=== PATIENT | female | born 1955 | race Caucasian/White ===

== ENCOUNTER 2020-06-07 11:05 | Outpatient (REF) | payer OTHER, SELFPAY ==
[2020-06-07 11:37] LABS: IDNOW Serial# 55D5AD1C
[2020-06-07 11:38] LABS: COVID-19 Test Negative (Negative)
== END 2020-06-07 11:06 | disposition home or self-care (01) ==
LOC: HO.EMPCOV 11:05
PROVIDERS: PCP Internal Medicine; Visit Provider Internal Medicine
DX: Z20.828 Contact with and (suspected) exposure to other viral communicable diseases (principal)
CPT/HCPCS: 87635; C9803

== ENCOUNTER 2020-06-11 13:50 | Outpatient (REF) | payer OTHER, SELFPAY ==
[2020-06-11 14:41] LABS: COVID-19 Test Negative (Negative); IDNOW Serial# 9DD0AD1C
== END 2020-06-11 13:51 | disposition home or self-care (01) ==
LOC: HO.LAB 13:50
PROVIDERS: Visit Provider Internal Medicine
DX: Z20.828 Contact with and (suspected) exposure to other viral communicable diseases (principal)
CPT/HCPCS: 87635; C9803

== ENCOUNTER 2021-09-10 07:52 | Outpatient (REF) | payer OTHER, SELFPAY ==
--- NOTE | ~2021-09-10 | MM_ITS ---
EXAMINATION: BONE DENSITOMETRY CLINICAL INDICATION: Other specified disorders of bone density and structure. COMPARISON: Baseline BD dated 07/19/2019. TECHNIQUE: Using a [employer] DXA System (software version: 13.1) manufactured by [employer], dual-energy x-ray absorptiometry was performed of the lumbar spine and left hip. The images are of good technical quality. Summary results are attached. FINDINGS: AP SPINE L1-L4: Current: BMD 1.024 g/cm2, Z-score 0.5, T-score -1.3, osteopenia, 1.2% decrease from baseline (<5% change is not significant). Baseline: BMD 1.036 g/cm2. LEFT FEMUR, NECK: Current: BMD 0.704 g/cm2, Z-score -0.7, T-score -2.4, osteopenia. Baseline: BMD 0.799 g/cm2. LEFT FEMUR, TOTAL: Current: BMD 0.748 g/cm2, Z-score -0.5, T-score -2.1, osteopenia, 11.9% decrease from baseline (<5% change is not significant). Baseline: BMD 0.849 g/cm2. IDENTIFIED RISK FACTORS: Menopause. HISTORY OF FRACTURE: None listed. MEDICATIONS: Calcium supplements or multivitamin, vitamin D. MM/XR DEXA axial skeleton IMPRESSION: 1. DIAGNOSIS: Osteopenia based on the lowest T-score value of -2.4 in the femoral neck applying World Health Organization criteria. 2. 10-YEAR FRACTURE RISK PREDICTION, FRAX: Major osteoporotic fracture (clinical spine, forearm, hip or shoulder) 13.7%. Hip fracture 3.2%. 3. Treatment Recommendations: NOF guidelines recommend consideration for treatment in postmenopausal women and men age 50 and older presenting with the following: -A hip or vertebral (clinical or morphometric) fracture. -T-score less than or equal to -2.5 at the femoral neck or spine after appropriate evaluation to exclude secondary causes. -Low bone mass at the hip or spine and a 10-year fracture probability by FRAX of greater than or equal to 3% for hip fracture or greater than or equal to 20% for major osteoporotic fracture based on the [place] adapted WHO algorithm. 4. Other Recommendations: All treatment decisions require clinical judgment and consideration of individual patient factors, including patient preferences, comorbidities, previous drug use, risk factors not captured in the FRAX model (e.g. frailty, falls, vitamin D deficiency, increased bone turnover, interval significant decline in bone density) and possible under or overestimation of fracture risk by FRAX. Additional medical evaluation for secondary cause of low bone mineral density may be appropriate. FUTURE SCAN RECOMMENDATION: People with diagnosed cases of osteoporosis or at high risk for fracture should have regular bone mineral density tests. For patients eligible for Medicare, routine testing is allowed once every 2 years. The testing frequency can be increased to one year for patients who have rapidly progressing disease, those who are receiving or discontinuing medical therapy to restore bone mass, or have additional risk factors. Related to the history reductione milliliters of the 2 previously reviewed with the deformity again the region of malignancy. Liver in the region
--- NOTE | ~2021-09-10 | MM_ITS ---
EXAMINATION: MM SCREENING DIGITAL BREAST TOMOSYNTHESIS, BILATERAL CLINICAL INFORMATION: Screening. Asymptomatic. The lifetime risk of breast cancer based on the Tyrer-Cuzick Model is 4%. COMPARISON: Mammography: 07/25/2019, 07/19/2019, 06/21/2018, 04/06/2017, 03/09/2015 TECHNIQUE: Digital breast tomosynthesis is performed in both the craniocaudal and mediolateral oblique views along with computer-aided detection (CAD). Synthesized 2D images are generated from the tomosynthesis. FINDINGS: There are scattered areas of fibroglandular density (ACR BI-RADS breast composition Category b). Breast tissue composition borders on heterogeneously dense. Incidental vascular calcifications again seen central posterior lower right breast. Parenchymal pattern is similar to prior studies. No significant mass or architectural abnormality. No abnormal calcifications. The axilla and skin contours are unremarkable. No significant changes. MM/MM tomosynthesis screening BI IMPRESSION: No mammographic evidence of malignancy. ASSESSMENT: BI-RADS 2: Benign RECOMMENDATION: Routine annual mammography screening. This patient's information was entered into a reminder system with a target due date for their next mammogram.
== END 2021-09-10 07:53 | disposition home or self-care (01) ==
LOC: HO.MAMMO 07:52
PROVIDERS: PCP Internal Medicine; Visit Provider Internal Medicine
DX: Z12.31 Encounter for screening mammogram for malignant neoplasm of breast (principal); M85.89 Other specified disorders of bone density and structure, multiple sites; Z78.0 Asymptomatic menopausal state; Z79.899 Other long term (current) drug therapy
CPT/HCPCS: 77063; 77067; 77080

== ENCOUNTER 2022-05-16 05:58 | Outpatient (REF) | payer OTHER, SELFPAY ==
[2022-05-16 06:03] LABS: MANUAL DIFF FLAG NO
[2022-05-16 07:12] LABS: Basophils Absolute Auto 0.1 X10*3/uL (0.0-0.2); Basophils Percent Auto 1.8 % (0-2); Eosinophils Absolute Auto 0.2 X10*3/uL (0.0-0.4); Eosinophils Percent Auto 4.7 % (0-4); Hematocrit 43.6 % (37.0-47.0); Hemoglobin 14.4 g/dl (12.0-16.0); Imm Gran Abs Auto 0.01 X10*3/uL (0.00-0.03); Imm Gran Pct Auto 0.3 % (0.0-0.4); Lymphocytes Absolute Auto 1.2 X10*3/uL (1.2-4.9); Lymphocytes Percent Auto 35.1 % (20-40); Mean Corpuscular Hemoglobin 30.9 pg (27.0-33.0); Mean Corpuscular Volume 93.6 fL (80.0-98.0); Mean Platelet Volume 9.5 fL (9.4-12.3); Monocytes Absolute Auto 0.3 X10*3/uL (0.1-1.2); Monocytes Percent Auto 8.2 % (2-11); Neutrophils Absolute Auto 1.7 x10*3/uL (2.0-8.3); Neutrophils Percent Auto 49.9 % (45-73); Platelet Count 256 X10*3/uL (160-400); Red Blood Count 4.66 X10*6/uL (4.20-5.50); Red Cell Distribution Width 12.2 % (11.0-16.0); White Blood Count 3.4 X10*3/uL (4.8-10.8)
[2022-05-16 07:53] LABS: Alanine Aminotransferase 12 U/L (0-31); Anion Gap 12 (12-20); Aspartate Amino Transferase 22 U/L (5-31); Blood Urea Nitrogen 16 mg/dL (9-16); Calcium 9.6 mg/dL (8.4-10.2); Carbon Dioxide 27 mmol/L (22-29); Chloride 105 mmol/L (96-108); Cholesterol 191 mg/dL; Estimated Glomerular Filt Rate > 60; Glucose Fasting 91 mg/dL (60-99); HDL Cholesterol 83 mg/dL; LDL Cholesterol Calculated 103 mg/dl; Potassium 4.3 mmol/L (3.3-5.1); Sodium 140 mmol/L (135-145); Triglycerides 29 mg/dL
[2022-05-16 08:12] LABS: Vitamin D 25-OH Total 56.6 ng/mL (>30)
== END 2022-05-16 05:59 | disposition home or self-care (01) ==
LOC: HO.LAB 05:58
PROVIDERS: PCP Internal Medicine; Visit Provider Internal Medicine
DX: Z00.00 Encounter for general adult medical examination without abnormal findings (principal); M85.89 Other specified disorders of bone density and structure, multiple sites; I10 Essential (primary) hypertension; Z78.0 Asymptomatic menopausal state
CPT/HCPCS: 36415; 80048; 80061; 82306; 84450; 84460; 85025

== ENCOUNTER 2023-08-10 06:00 | Outpatient (REF) | payer MEDICARE, SELFPAY ==
[2023-08-10 07:34] LABS: Cholesterol 206 mg/dL (<200); Glucose Fasting 95 mg/dL (60-99); HDL Cholesterol 89 mg/dL (>40); LDL Cholesterol Calculated 109 mg/dL (<100); Triglycerides 41 mg/dL (<150)
[2023-08-10 07:48] LABS: Vitamin D 25-OH Total 59.4 ng/mL (>30)
[2023-08-10 07:53] LABS: Folate 13.6 ng/mL (> or = 4.0); Vitamin B12 579 pg/mL (200-900)
== END 2023-08-10 06:01 | disposition home or self-care (01) ==
LOC: HO.LAB 06:00
PROVIDERS: PCP Internal Medicine; Visit Provider Internal Medicine
DX: Z00.01 Encounter for general adult medical examination with abnormal findings (principal); M85.89 Other specified disorders of bone density and structure, multiple sites; Z78.0 Asymptomatic menopausal state
CPT/HCPCS: 36415; 80061; 82306; 82607; 82746; 82947

== ENCOUNTER 2023-08-20 15:58 | Outpatient (AMB) | payer MEDICARE, SELFPAY ==
--- NOTE | 2023-08-20 16:34 | A.OFFPC_ITS ---
Vital Signs 08/20/23 16:35 Height 5 ft 2 in Weight 130 lb BMI 23.8 BP 136/60 Blood Pressure Location Lt brachial Position Sitting Pulse 72 Pulse Source Pulse Oximeter Pulse Oximetry (%) 98 Oxygen Delivery Method Room Air Intake Visit Reasons: family history of heart disease Intake Note: Pt is here today c/o elevated b/p times and has family hx of heart disease Allergies No Known Allergies [NKA] Allergy (Verified 08/20/23 16:56) Medication List - Last Reconciled 08/20/23 by Ashley Cole MD cholecalciferol (vitamin D3) 25 mcg PO DAILY flaxseed oil 1,000 mg PO DAILY multivitamin 1 tab PO DAILY Tobacco use date assessed: 08/20/23 Fall risk assessment: No Falls in past year Last assessed Fall Risk: 08/20/23 Dental Screening Dental Screen Date: 08/20/23 Did you have a dental visit in the last 12 months?: Yes Did you have a dental problem in the last 6 months where you did not have access to dental care?: No Was dental information given to patient?: Patient has dentist HPI HPI Comments History of Present Illness Details 68-year-old lady here today for follow-u p. She bought a blood pressure monitor with brachial cough and she has been running from between 135/70 to 165/90, heart rate in the 60s. She denies having any chest pain, no shortness of breath but had 1 episode of chest pressure a month ago while sitting down, lasted several seconds and resolved spontaneously. She does have strong family history of coronary artery disease, mother has Congestive heart failure, 1 brother had a massive OK at age 52 while shoveling snow and 1 brother has been diagnosed to have atrial fibrillation and had a stroke in his 50s . Patient has been staying active, fo llowing healthy diet. Recent fasting labs showed lipids and fasting glucose are within normal limits [facility] Medical History (Updated 08/20/23 @ 17:25 by Ashley Cole MD) Vaccine refused by patient Essential hypertension Family history of early CAD Abnormal EKG Gilbert's disease History of shingles Osteopenia of multiple sites Surgical History Hx of appendectomy Hx of colonoscopy Family History Father HTN (hypertension) Lung cancer, Onset Age: 92 Mother HTN (hypertension) CHF (congestive heart failure) Sister Humza's disease HTN (hypertension) Brother FHx: early OK, Onset Age: 52 Brother HTN (hypertension) Atrial fibrillation, Onset Age: 50 CVA (cerebral vascular accident) Other Mild early onset dysthymic disorder, in full remission, with anxious distress, with pure dysthymic syndrome Social History Housing: House Patient Tobacco Use Status: Never used Tobacco e-Cigarette/Vaping Use: Never Used service: No Current occupational status: retired Cognitive needs: No Hearing needs: No Vision needs: Yes Questionnaire PHQ-9 Over the last 2 weeks, how often have you been bothered by any of the following problems? 1. Little interest or pleasure in doing things: not at all 2. Feeling down, depressed, or hopeless: not at all 3. Trouble falling or staying asleep, or sleeping too much: not at all 4. Feeling tired or having little energy: not at all 5. Poor appetite or overeating: not at all 6. Feeling bad about yourself - or that you are a failure or have let yourself or your family down: not at all 7. Trouble concentrating on things, such as reading the newspaper or watching television: not at all 8. Moving or speaking so slowly that other people could have noticed. Or the opposite - being so fidgety or restless that you have been moving around a lot more than usual: not at all 9. Thoughts that you would be better off or of hurting yourself in some way: not at all Total score: 0 Depression Screening Interpretation: Negative Depression Screening Done: Yes 31761 - PHQ-9 Billing: Yes Source: Developed by Drs. Vic Thompson, Shavon Abreu, Alex Moreno and colleagues, with an educational brooke from [employer]. Thrive Questionnaire Date Thrive assessed: 08/20/23 I am a: Patient What is your living situation today?: I have a steady place to live Within the past 12 months, did the food you bought not last and you didn't have the money to get more?: Never true Within the past 12 months, did you worry whether your food would run out before you got money to buy more?: Never true Do you have trouble paying for medicines?: No Do you have trouble getting transportation to medical appointments?: No Do you have trouble paying your heating and electricity bill?: No Do you have trouble taking care of your child, family member or friend?: No Do you have trouble with day-to-day activities such as bathing, preparing meals, shopping, managing finances, etc.?: No Are you currently unemployed and looking for a job?: No Are you interested in more education?: No THRIVE Score: 0 AUDIT C Alcohol Use Questionnaire (AUDIT-C) 1. How often do you have a drink containing alcohol?: Never Total Score: 0 GIA-7 AMB Questionnaire GIA-7 Date GIA - 7 assessed: 08/20/23 Feeling nervous, anxious, or on edge: 0 = Not at all Not being able to stop or control worryin = Not at all Worrying too much about different things: 0 = Not at all Trouble relaxin = Not at all Being so restless that it is hard to sit still: 0 = Not at all Becoming easily annoyed or irritable: 0 = Not at all Feeling afraid as if something awful might happen: 0 = Not at all Total GIA-7 score (0-4 normal; 5-9 mild; 10-14 moderate; 15-21 severe): 0 Source: Developed by Drs. Vic Thompson, Shavon Abreu, Alex Moreno and colleagues, with an educational brooke from [employer]. GIA-7 Assessment Billing GIA-7 Assessment Tool: GIA-7 Assessment 26041 Review of Systems Const Denies body aches, Denies fatigue, Denies fever(s), Denies headache(s) and Denies weakness Eyes Details: Sees Dr. Thakkar every year for routine eye check Denies change in vision ENT Reports Normal hearing present and Denies headache(s) Card Denies chest pain, Denies lightheadedness, Denies palpitations and Denies dyspnea Resp Denies chest congestion, Denies cough, Denies dyspnea and Denies wheezing GI Denies abdominal pain, Denies change in bowel habits and Denies heartburn Musc Reports no additional complaints Neuro Reports Normal hearing present, Denies headache(s), Denies Sensory deficit (Neuro) and Denies weakness Endo Denies fatigue, Denies polydipsia, Denies polyuria and Denies palpitations Davi/Lymph Denies easy bruising Aller/Immun Denies seasonal rhinorrhea and Denies wheezing Physical exam (Primary Care) Vital Signs: Last Vital Signs Pulse 72 08/20/23 16:35 BP 136/60 08/20/23 16:35 Pulse Ox 98 08/20/23 16:35 Oxygen Delivery Method Room Air 08/20/23 16:35 BMI result Body Mass Index 23.8 Tobacco/Smoking Status: Tobacco use Status Tobacco use date assessed 08/20/23 08/20/23 16:41 Patient Tobacco Use Status Never used Tobacco 08/20/23 16:41 e-Cigarette/Vaping Use Never Used 08/20/23 16:41 PHQ-9: PHQ-9 Score PHQ-9: Total score 0 08/20/23 16:41 Depression Screening Interpretation: Negative Thrive Assessment: Date of Thrive Assessment Date Thrive assessed 08/20/23 08/20/23 16:41 Const General: cooperative, healthy appearing, no acute distress and alert Orientation/consciousness: patient oriented x3 HENMT Ears: external ears normal General nose exam: Normal external nose present Face and sinus: Yes normal facial exam and Yes face symmetric Mouth: Normal oral and palatal mucosa present and moist mucous membranes Eyes Conjunctivae: conjunctivae normal Sclerae: sclerae normal Pupils: Equal, round and reactive pupils present EOM: EOMs intact bilaterally Neck Neck: Yes full ROM and Yes no lymphadenopathy Thyroid: Thyroid normal Resp Effort & Inspection: normal respiratory effort and able to speak in complete sentences Auscultation: clear to auscultation bilaterally Cardio Rate: regular rate Rhythm: regular rhythm Heart sounds: S1 normal heart sound present, S2 normal heart sound present and Murmur heart sound present systolic blowing and at the left sternal border GI Inspection: Yes normal to inspection Palpation (GI): Soft to palpation Auscultation: normal bowel sounds and no bruits Neuro General: patient oriented x3, gait normal, moves all extremities, no focal motor deficits and CN's II-XI intact bilaterally Cranial nerves: Yes Equal, round and reactive pupils present and Yes Normal hearing present Cognition (Neuro): normal cognition Gait exam (Neuro): Normal gait present Motor exam (neuro): 5/5 motor strength present throughout Sensory Exam: No Sensory deficit (Neuro) Extrem General: Yes normal to inspection, Yes full ROM, Yes no pedal edema and Yes normal gait Results Reviewed Results Reviewed: ENTERED: 08/10/23 GINA : ORDERED: Glu Fasting, Lipid Panel, Vitamin D 25-OH Test Result Flag Reference FBS 95 60-99 mg/dL Triglyceride 41 <150 mg/dL Desirable Triglyceride: less than 150 mg/dL Borderline High Triglyceride 150-199 mg/dL High Triglyceride: 200-499 mg/dL Very High Triglyceride: greater than or equal to 5OO mg/dL Cholesterol 206 H <200 mg/dL Desirable Cholesterol: less than 200 mg/dL Borderline High Cholesterol: 200-239 mg/dL High Cholesterol: greater than 239 mg/dL LDL Calculated 109 H <100 mg/dL Desirable LDL: less than 100 mg/dL Near Optimal/Above Optimal LDL: 110-129 mg/dL Borderline High LDL: 130-159 mg/dL High LDL: 160-189 mg/dL Very High LDL: greater than or equal to 190 mg/dL HDL 89 >40 mg/dL Desirable HDL: greater than 40 mg/dL Note: This HDL assay may give artificially low results in patients with liver disease. Vit D 25-OH Tot 59.4 >30 ng/mL Health Based Reference Values* < 20 ng/mL Deficient 20-30 ng/mL Insufficient > 30 ng/mL Sufficient Assessment and Plan Assessment & Plan (1) Abnormal EKG: Code(s): R94.31 - Abnormal electrocardiogram [ECG] [EKG] Plan: EKG showed normal sinus rhythm with frequent PVCs and? Septal infarct. Patient currently asymptomatic, but does have strong family history for CAD referred to cardiology for further evaluation (2) Family history of early CAD: Code(s): Z82.49 - Family history of ischemic heart disease and other diseases of the circulatory system (3) Essential hypertension: Code(s): I10 - Essential (primary) hypertension Plan: Started on lisinopril 5 mg per tablet to take once a day in am , reinforced importance of following a low-salt diet and getting regular exercise. return to clinic in 4 weeks for follow-up. (4) Vaccine refused by patient: Code(s): Z28.20 - Immunization not carried out because of patient decision for unspecified reason Orders: Orders AMB EKG-In Office Today I10 - Essential (primary) hypertension, R94.31 - Abnormal electrocardiogram [ECG] [EKG], Z82.49 - Family history of ischemic heart disease and other diseases of the circulatory system Referrals Cardiology Referral I10 - Essential (primary) hypertension, R94.31 - Abnormal electrocardiogram [ECG] [EKG], Z82.49 - Family history of ischemic heart disease and other diseases of the circulatory system Medications: New lisinopril 5 mg PO DAILY 30 tabs 1RF Coding Level of Care Code Est Pt Level 3 (29255) Diagnoses Abnormal EKG R94.31 Family history of early CAD Z82.49 Essential hypertension I10 Vaccine refused by patient Z28.20 Additional Codes GIA-7 Assessment Billing - GIA-7 Assessment Tool: GIA-7 Assessment 05831 ([id number])
[2023-08-20 16:35] VITALS: BP 136/60; PULSE 72; O2SAT 98; BMI 23.8
== END 2023-08-20 17:12 | disposition home or self-care (01) ==
PROVIDERS: PCP Internal Medicine; Visit Provider Internal Medicine
DX: R94.31 Abnormal electrocardiogram [ECG] [EKG] (principal); Z82.49 Family history of ischemic heart disease and other diseases of the circulatory system; I10 Essential (primary) hypertension; Z28.20 Immunization not carried out because of patient decision for unspecified reason
CPT/HCPCS: 99213

== ENCOUNTER 2023-09-23 09:16 | Outpatient (AMB) | payer MEDICARE, SELFPAY ==
[2023-09-23 09:17] VITALS: BP 136/66; PULSE 78; O2SAT 98; BMI 23.4
--- NOTE | 2023-09-23 09:17 | MHC.PC.OV ---
Vital Signs 09/23/23 09:17 09/23/23 10:35 Height 5 ft 2 in Weight 128 lb BMI 23.4 BP 136/66 120/70 Blood Pressure Location Rt brachial Rt brachial Position Sitting Sitting Pulse 78 Pulse Source Pulse Oximeter Pulse Oximetry (%) 98 Oxygen Delivery Method Room Air Intake Visit Reasons: 1 month appt Intake Note: Pt is here today for her 1 month follow up. Allergies No Known Allergies [NKA] Allergy (Verified 09/24/23 01:47) Medication List - Last Reconciled 09/24/23 by Ashley Cole MD cholecalciferol (vitamin D3) 25 mcg PO DAILY flaxseed oil 1,000 mg PO DAILY lisinopril 5 mg PO DAILY multivitamin 1 tab PO DAILY Tobacco use date assessed: 09/23/23 Fall risk assessment: No Falls in past year Last assessed Fall Risk: 09/23/23 Dental Screening Dental Screen Date: 09/23/23 Did you have a dental visit in the last 12 months?: Yes Did you have a dental problem in the last 6 months where you did not have access to dental care?: No Was dental information given to patient?: Patient has dentist HPI 1 month appt HPI Details 68-year-old lady here today for follow-up on her hypertension. She was started on lisinopril 5 mg per tablet taken once a day in a.m., tolerating medication well. Patient has been checking her blood pressure at home with her own blood pressure monitor with brachial cuff and it has been running on average at 130/70. Patient denies palpitations, chest pain, no shortness of breath but does occasionally get episodes of dizziness after taking lisinopril which usually resolves after several minutes. [facility] Medical History Vaccine refused by patient Essential hypertension Family history of early CAD Abnormal EKG Gilbert's disease History of shingles Osteopenia of multiple sites Surgical History Hx of appendectomy Hx of colonoscopy Family History Father HTN (hypertension) Lung cancer, Onset Age: 92 Mother HTN (hypertension) CHF (congestive heart failure) Sister Gilbert's disease HTN (hypertension) Brother FHx: early MD, Onset Age: 52 Brother HTN (hypertension) Atrial fibrillation, Onset Age: 50 CVA (cerebral vascular accident) Other Mild early onset dysthymic disorder, in full remission, with anxious distress, with pure dysthymic syndrome Social History Housing: House Patient Tobacco Use Status: Never used Tobacco e-Cigarette/Vaping Use: Never Used service: No Current occupational status: retired Cognitive needs: No Hearing needs: No Vision needs: Yes Questionnaire Thrive Questionnaire Date Thrive assessed: 08/20/23 AUDIT C Alcohol Use Questionnaire (AUDIT-C) 1. How often do you have a drink containing alcohol?: Never 3. How often do you have six or more drinks on one occasion?: Never Total Score: 0 Score Reviewed/Action Taken: Yes GIA-7 AMB Questionnaire GIA-7 Date GIA - 7 assessed: 08/20/23 Source: Developed by Drs. Vic Thompson, Shavon Abreu, Alex Moreno and colleagues, with an educational brooke from [employer]. Review of Systems Const Denies body aches, Denies fatigue and Denies weakness Eyes Details: Sees Dr. Thakkar every year for routine eye check Denies change in vision ENT Reports Normal hearing present Card Reports no additional complaints Resp Denies chest congestion and Denies cough GI Reports no additional complaints Musc Reports no additional complaints Neuro Reports Normal hearing present, Denies Sensory deficit (Neuro) and Denies weakness Endo Denies fatigue, Denies polydipsia and Denies polyuria Physical exam (Primary Care) Vital Signs: Last Vital Signs Pulse 78 09/23/23 09:17 BP 120/70 09/23/23 10:35 Pulse Ox 98 09/23/23 09:17 Oxygen Delivery Method Room Air 09/23/23 09:17 BMI result Body Mass Index 23.4 Tobacco/Smoking Status: Tobacco use Status Tobacco use date assessed 09/23/23 09/23/23 09:23 Patient Tobacco Use Status Never used Tobacco 09/23/23 09:17 e-Cigarette/Vaping Use Never Used 09/23/23 09:17 Thrive Assessment: Date of Thrive Assessment Date Thrive assessed 08/20/23 09/23/23 09:17 Const General: no acute distress and alert Orientation/consciousness: patient oriented x3 HENMT Face and sinus: Yes face symmetric Mouth: Normal oral and palatal mucosa present and moist mucous membranes Eyes Conjunctivae: conjunctivae normal Sclerae: sclerae normal Pupils: Equal, round and reactive pupils present EOM: EOMs intact bilaterally Neck Neck: Yes full ROM and Yes no lymphadenopathy Thyroid: Thyroid normal Resp Effort & Inspection: normal respiratory effort and able to speak in complete sentences Auscultation: clear to auscultation bilaterally Cardio Rate: regular rate Rhythm: regular rhythm Heart sounds: S1 normal heart sound present, S2 normal heart sound present and Murmur heart sound present systolic blowing and at the left sternal border GI Inspection: Yes normal to inspection Palpation (GI): Soft to palpation Auscultation: normal bowel sounds and no bruits Neuro General: patient oriented x3, gait normal, moves all extremities, no focal motor deficits and CN's II-XI intact bilaterally Cranial nerves: Yes Equal, round and reactive pupils present and Yes Normal hearing present Cognition (Neuro): normal cognition Gait exam (Neuro): Normal gait present Motor exam (neuro): 5/5 motor strength present throughout Sensory Exam: No Sensory deficit (Neuro) Extrem General: Yes normal to inspection, Yes full ROM, Yes no pedal edema and Yes normal gait Assessment and Plan Assessment & Plan (1) Essential hypertension: Code(s): I10 - Essential (primary) hypertension Plan: Reviewed results of her blood pressure readings taken with her monitor at home, blood pressure taking today's within normal limits, will continue on current dose of lisinopril at 5 mg taken once a day. Reinforced importance of following a low-salt diet and getting regular exercise. (2) Intermittent lightheadedness: Code(s): R42 - Dizziness and giddiness Plan: Advised to continue monitor blood pressure and inform us if blood pressure goes down below 100 over 60 especially after taking lisinopril. Ordered a CBC and basic metabolic panel Orders: Orders Complete Blood Count Auto Diff 09/23/23 I10 - Essential (primary) hypertension, R42 - Dizziness and giddiness Basic Metabolic Panel 09/23/23 I10 - Essential (primary) hypertension, R42 - Dizziness and giddiness Coding Level of Care Code Est Pt Level 3 (90359) Diagnoses Essential hypertension I10 Intermittent lightheadedness R42
[2023-09-23 10:35] VITALS: BP 120/70
== END 2023-09-23 11:01 | disposition home or self-care (01) ==
PROVIDERS: PCP Internal Medicine; Visit Provider Internal Medicine
DX: I10 Essential (primary) hypertension (principal); R42 Dizziness and giddiness
CPT/HCPCS: 99213

== ENCOUNTER 2023-09-23 10:39 | Outpatient (REF) | payer MEDICARE, SELFPAY ==
[2023-09-23 13:20] LABS: MANUAL DIFF FLAG NO
[2023-09-23 13:33] LABS: Basophils Absolute Auto 0.1 X10*3/uL (0.0-0.2); Basophils Percent Auto 1.1 % (0-2); Eosinophils Absolute Auto 0.1 X10*3/uL (0.0-0.4); Eosinophils Percent Auto 2.3 % (0-4); Hemoglobin 14.6 g/dl (12.0-16.0); Imm Gran Abs Auto 0.01 X10*3/uL (0.00-0.03); Imm Gran Pct Auto 0.2 % (0.0-0.4); Lymphocytes Absolute Auto 1.1 X10*3/uL (1.2-4.9); Lymphocytes Percent Auto 23.2 % (20-40); Mean Corpuscular Volume 91.3 fL (80.0-98.0); Mean Platelet Volume 9.7 fL (9.4-12.3); Monocytes Absolute Auto 0.3 X10*3/uL (0.1-1.2); Monocytes Percent Auto 6.4 % (2-11); Neutrophils Absolute Auto 3.1 x10*3/uL (2.0-8.3); Neutrophils Percent Auto 66.8 % (45-73); Platelet Count 235 X10*3/uL (160-400); Red Blood Count 4.71 X10*6/uL (4.20-5.50); White Blood Count 4.7 X10*3/uL (4.8-10.8)
[2023-09-23 14:14] LABS: Anion Gap 12 (12-20); Blood Urea Nitrogen 13 mg/dL (9-16); Calcium 10.2 mg/dL (8.4-10.2); Carbon Dioxide 27 mmol/L (22-29); Chloride 104 mmol/L (96-108); Estimated Glomerular Filt Rate > 60; Glucose Random 92 mg/dL (60-115); Potassium 4.2 mmol/L (3.3-5.1); Sodium 139 mmol/L (135-145)
== END 2023-09-23 10:40 | disposition home or self-care (01) ==
LOC: HO.HMGCLDS 10:39
PROVIDERS: PCP Internal Medicine; Visit Provider Internal Medicine
DX: I10 Essential (primary) hypertension (principal); R42 Dizziness and giddiness
CPT/HCPCS: 36415; 80048; 85025

== ENCOUNTER 2023-10-16 08:35 | Outpatient (AMB) | payer MEDICARE, SELFPAY ==
--- NOTE | 2023-10-16 08:51 | MHC.OFFVIS ---
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 Patient had EKG done at that time as general test as she had noted herself to have elevated blood pressure she is concerned because of strong family history of heart disease predominantly hypertension as well as in couple of her siblings had premature CAD with 1 heavy myocardial infarction while shoveling snow. Patient is very anxious today. She said recently she was noticing that her blood pressure is very high on 1 of the monitor she was at home she had pursued that with your office and he had prescribed her lisinopril 5 mg. But once she started taking that she got very lightheaded and then she found that her blood pressure machine giving her readings was faulty. She bought a new blood pressure machine and she is stopped taking lisinopril. Since then her blood pressures been generally well controlled with systolic blood pressure less than 120. She has no more episodes of lightheadedness. She denies any exertional chest pain or shortness of breath. She is worried about her underlying heart disease. She denies any symptoms of palpitations or skipped heartbeats. No syncopal episodes. Overall feeling well. [facility] Medical History Vaccine refused by patient Essential hypertension Family history of early CAD Abnormal EKG Gilbert's disease History of shingles Osteopenia of multiple sites Surgical History Hx of appendectomy Hx of colonoscopy Family History Father HTN (hypertension) Lung cancer, Onset Age: 92 Mother HTN (hypertension) CHF (congestive heart failure) Sister Gilbert's disease HTN (hypertension) Brother FHx: early [place], Onset Age: 52 Brother HTN (hypertension) Atrial fibrillation, Onset Age: 50 CVA (cerebral vascular accident) Other Mild early onset dysthymic disorder, in full remission, with anxious distress, with pure dysthymic syndrome Social History Housing: House Patient Tobacco Use Status: Never used Tobacco e-Cigarette/Vaping Use: Never Used service: No Current occupational status: retired Cognitive needs: No Hearing needs: No Vision needs: Yes Review of Systems Const Denies chills, Denies daytime sleepiness, Denies fatigue, Denies fever(s), Denies frequent falls, Denies night sweats, Denies snoring, Denies weakness, Denies weight gain and Denies weight loss Eyes Denies loss of vision ENT Denies dizziness and Denies hearing loss Card Denies chest pain, Denies chest pain with activity, Denies syncope, Denies rapid heart rate, Denies edema, Denies claudication, Denies leg edema, Denies lightheadedness, Denies palpitations, Denies dyspnea, Denies dyspnea on exertion and Denies orthopnea Resp Denies cough, Denies excessive phlegm production, Denies dyspnea, Denies dyspnea on exertion, Denies snoring and Denies wheezing GI Denies abdominal pain, Denies hematochezia, Denies change in bowel habits, Denies change in stool character, Denies heartburn, Denies nausea and Denies vomiting Denies hematuria, Denies urinary frequency and Denies dysuria Musc Denies arthralgias, Denies muscle weakness, Denies numbness and Denies tingling Skin/Breast Denies nail changes and Denies rash Neuro Denies Abnormal speech present, Denies dizziness, Denies syncope, Denies frequent falls, Denies loss of vision, Denies memory loss, Denies numbness, Denies tingling and Denies weakness Psych Denies depression and Denies memory loss Endo Denies fatigue and Denies palpitations Aller/Immun Denies wheezing Physical Exam Vital Signs: Last Vital Signs Pulse 77 10/16/23 09:04 BP 142/76 H 10/16/23 09:04 BMI result Body Mass Index 23.1 Const General: cooperative, comfortable, no acute distress, alert, awake, Physically active and anxious Nutritional Appearance: thin Orientation/consciousness: patient oriented x3 Limitations: no limitations HEENT Head: Yes normocephalic and Yes atraumatic Neck Neck: Yes trachea midline, Yes supple and Yes no JVD Resp Effort & Inspection: normal respiratory effort Auscultation: clear to auscultation bilaterally Cardio Jugular venous distension: no JVD Palpation: normal PMI Rate: regular rate Rhythm: regular rhythm Heart sounds: S1 normal heart sound present, S2 normal heart sound present, no click, no gallops, no murmurs and no rubs GI Auscultation: normal bowel sounds Skin General skin exam: no rashes or lesions noted Neuro General: patient oriented x3 and no focal motor deficits Speech: No Abnormal speech present Extrem General: Yes no clubbing, cyanosis or edema Psych Appearance: grossly normal Affect: Anxious affect present Office Procedures EKG Details: EKG shows normal sinus rhythm with septal QS pattern with nonspecific ST depression 72732-[id number], Complete Assessment & Plan Assessment & Plan (1) PVC (premature ventricular contraction): Code(s): I49.3 - Ventricular premature depolarization Plan: Frequent PVCs noted recently on EKG. Patient has no symptoms related to it. We discussed about findings the PVCs and associated pathophysiology. Need to rule out underlying structural heart disease. Suggest her to undergo echocardiogram to assess LV systolic and diastolic function and also undergo a stress test to evaluate for coronary artery disease. If these tests are within normal limits will pursue a Holter monitor for 7 days to assess frequency of PVCs. The structure of the heart is normal and she does not have frequent PVCs, no further therapy is indicated. We discussed about avoidance of stimulants such as caffeine and alcohol. General stress mitigation strategies to be pursued. Generally risk factor modification to pursue. Advised to continue monitor blood pressure at home intermittently. Low-salt diet was discussed. Maintain activity level as tolerated. For stress test is negative and she is interested to pursue further risk stratification coronary calcium score can be done to assess presence of coronary atherosclerosis and guide further treatment. Will follow up in the clinic in 6 weeks time, sooner p.r.n.. Thank you for allowing me to partake in the care Coding Level of Care Code New Pt Level 4 (09301) Diagnoses PVC (premature ventricular contraction) I49.3 CPT Codes EKG - CPT: 24754-[id number], Complete ([id number])
[2023-10-16 09:04] VITALS: BP 142/76; PULSE 77; BMI 23.1
== END 2023-10-16 09:35 | disposition home or self-care (01) ==
PROVIDERS: PCP Internal Medicine; Visit Provider Internal Medicine Cardiovascular Disease
DX: I49.3 Ventricular premature depolarization (principal)
CPT/HCPCS: 93010; 99204

== ENCOUNTER → 2023-10-16 08:35 | Outpatient (BNVA) | payer MEDICARE, SELFPAY | PROVIDERS: PCP Internal Medicine; Visit Provider Internal Medicine Cardiovascular Disease | DX: I10 Essential (primary) hypertension (principal); I25.10 Atherosclerotic heart disease of native coronary artery without angina pectoris; I49.3 Ventricular premature depolarization; I25.2 Old myocardial infarction | CPT/HCPCS: 93005; 99202 ==

== ENCOUNTER → 2023-11-16 07:45 | Outpatient (REF) | payer MEDICARE, SELFPAY ==
--- NOTE | 2023-11-16 07:54 | CA_ITS ---
Acquisition Time: 2023-11-16 08:42:16 Total Exercise Time: 00:05:00 Test Indications: ., Medications: NONR Protocol: LUIZ Max HR: 148 BPM 98% of Pred: 150 BPM Max BP: 144/076 mmHG Max Work Load: 4.6 METS Exercise stress test exercise 5 min of Luiz protocol stage 1 achieving 98% MPHR, without anginal symptoms. with isolated PVC, with normotenisve response , without EKG changes. Test reviewed with Dr. Duffy. Referred By: Neftali Gant Overread By: Belia Camarillo
--- NOTE | 2023-11-16 07:54 | CA_ITS ---
Transthoracic Echocardiogram Patient (Last, First, Middle): Luis Angel Craft E Gender: Female Date of : 1955 Age: 68 Procedure Date: 11/16/2023 Procedure Type: Transthoracic Echocardiogram Location: OP Height: 157.48 cm Weight: 57.15 kg BSA: 1.57 m2 Heart Rate: 71 bpm BP: 128 / 62 mmHg Crm Specialist: SB Referring MD: Neftali Gant MD Symptoms: I49.3 - Ventricular premature depolarization Study Quality: Adequate ECG Rhythm: Sinus Conclusions: - The left ventricular systolic function is normal. The visually estimated ejection fraction is between 60-65%. - No obvious valvular pathology seen on this study. Findings Left Ventricle Normal left ventricular cavity size. There is normal left ventricular wall thickness. The left ventricular systolic function is normal. The visually estimated ejection fraction is between 60-65%. There is no evidence of regional wall motion abnormalities. Diastolic function is normal for age. Right Ventricle Normal right ventricular cavity size and systolic function. Atria Both atria are normal in size. Aortic Valve There is a normal trileaflet aortic valve. There is mild calcification of the aortic valve. There is no aortic valve stenosis. There is no aortic valve regurgitation. Mitral Valve The mitral valve appears normal. There is no mitral valve regurgitation. There is no mitral valve stenosis. Pulmonic Valve The pulmonic valve is likely normal. Tricuspid Valve Normal tricuspid valve structure. There is trace tricuspid valve regurgitation. There is no evidence of pulmonary hypertension. Great Vessels The asc aorta is normal in size. Venous The inferior vena cava is mildly dilated and collapses greater than 50% with inspiration. Pericardium/Pleural There is no evidence of pericardial effusion. Prior Study Comparison No significant change compared to prior study dated: 03/22/2016. Recommendations, Care & Conclusions No obvious valvular pathology seen on this study. Measurements 2D Linear Measurements IVSd: 0.69 0.6-0.9/0.6-1.0 cm LVIDd: 4.33 3.9-5.3/4.2-5.9 cm LVIDd Index: 2.76 2.4-3.2/2.2-3.1 cm/m2 LVIDs: 2.08 2.0-3.6 cm LVPWd: 0.70 0.7-1.1 cm LA Diam: 3.20 2.7-3.8/3.0-4.0 cm LAIDs Index: 2.04 1.5-2.3 cm/m2 LV Mass: 110.00 67-162/88-224 g LV Mass Index: 70.06 43-95/49-115 g/m2 LVOT Diam: 1.90 3.0+(-)1.3 cm 2D Systolic Function EF 4C: 68.10 >55% EF 2C: 75.30 >55% EF BiP: 72.60 >55% Mitral Valve MV Pk E: 0.72 MV PK A: 0.70 MV Decel Time: 190.00 E/A: 1.00 E'Lateral: 7.18 E'Medial: 6.53 E/E' Med: 11.00 E/E' Lat: 10.00 PHT: 56.00 MVA PHT: 3.93 Decel [place]: 3.76 Aortic Valve AoV Pk Jamaal: 1.48 AoV Pk Grad: 9.00 NIGEL: 2.72 LVOT LVOT Pk Jamaal: 1.42 LVOT Mn Jamaal: 0.97 LVOT VTI: 0.30 LVOT Pk Grad: 8.00 LVOT Mn Grad: 4.00 LVOT Diam: 1.90 LVOT Area: 2.84 Diastolic Function MV Pk E: 0.72 MV Pk A: 0.70 E/A: 1.00 E'Medial: 6.53 E/E' Med: 11.00 E' Laterial: 7.18 E/E' Lat: 10.00 Right Ventricle TAPSE (mm): 28.50 TVS' Jamaal: 17.90 Tricuspid Valve TR Pk Jamaal: 1.95 TR Pk Grad: 15.00 RA Press: 8.00 RVSP: 23.00 Great Vessels Aorta Sinus of Valsalva: 2.70 2.0-3.5 cm Ao Asc: 3.60 2.1-3.4 cm Pulmonary Veins Pulm Vein S/D 1.60 Pulmonary Valve PV Pk Jamaal: 1.44 Peak PV Grad: 8.00 Updated in Other Vendor System with Status of Final Kvng Duffy MD electronically signed on 11/16/2023 9:41:00 AM with status of Final
--- NOTE | 2023-11-16 07:54 | HM_ITS ---
Conclusion: 1. Patient was monitored for total period of 6 days and 22 hours 2. Baseline was normal sinus rhythm with average heart of 72 beats per minute 3. No significant pauses noted 4. Occasional PACs noted with frequent supraventricular tachycardia events, longest lasting 40 beats and the fastest at 184 beats per minute 5. No patient reported events MTDD
== END ==
LOC: HO.CARD 07:45
PROVIDERS: PCP Internal Medicine; Visit Provider Internal Medicine Cardiovascular Disease
DX: I49.3 Ventricular premature depolarization (principal)
CPT/HCPCS: 93017; 93242; 93306

== ENCOUNTER → 2023-11-16 07:54 | Outpatient (BNV) | payer MEDICARE, SELFPAY | PROVIDERS: PCP Internal Medicine; Visit Provider Internal Medicine | DX: I47.10 Supraventricular tachycardia, unspecified (principal) | CPT/HCPCS: 93016; 93018; 93244; 93350 ==

== ENCOUNTER 2023-11-26 08:08 | Outpatient (AMB) | payer MEDICARE, SELFPAY ==
[2023-11-26 08:15] VITALS: BP 120/72; PULSE 74; BMI 23.5
--- NOTE | 2023-11-26 08:15 | MHC.OFFVIS ---
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 Today she reports that she has been feeling good with no concerning symptoms. She denies chest discomfort at rest or with activity. No concerning shortness of breath, PND, orthopnea or edema. No lightheadedness, heart palpitations, presyncope, syncope, falls. She reports good activity tolerance and went hiking recently. She tells me she drinks 5-6 caffeinated coffees per day which is a reduction from 10 per day. [facility] Medical History Vaccine refused by patient Essential hypertension Family history of early CAD Abnormal EKG Gilbert's disease History of shingles Osteopenia of multiple sites Surgical History Hx of appendectomy Hx of colonoscopy Family History Father HTN (hypertension) Lung cancer, Onset Age: 92 Mother HTN (hypertension) CHF (congestive heart failure) Sister Gilbert's disease HTN (hypertension) Brother FHx: early [place], Onset Age: 52 Brother HTN (hypertension) Atrial fibrillation, Onset Age: 50 CVA (cerebral vascular accident) Other Mild early onset dysthymic disorder, in full remission, with anxious distress, with pure dysthymic syndrome Social History Housing: House Patient Tobacco Use Status: Never used Tobacco e-Cigarette/Vaping Use: Never Used service: No Current occupational status: retired Cognitive needs: No Hearing needs: No Vision needs: Yes Review of Systems Const All systems reviewed & are unremarkable except as noted in HPI and below ENT Denies dizziness Card Denies chest pain, Denies chest pain at rest, Denies chest pain with activity, Denies rapid heart rate, Denies pedal edema, Denies edema, Denies leg edema, Denies lightheadedness, Denies palpitations, Denies dyspnea, Denies dyspnea on exertion and Denies orthopnea Resp Denies cough, Denies dyspnea and Denies dyspnea on exertion GI Denies hematochezia and Denies change in stool character Musc Denies abnormal gait, Denies limited range of motion, Denies muscle cramps, Denies muscle weakness, Denies numbness, Denies radiating pain into limb, Denies stiffness and Denies tingling Neuro Denies abnormal gait, Denies dizziness, Denies numbness and Denies tingling Endo Denies palpitations Physical Exam Vital Signs: BMI result Body Mass Index 23.5 Const General: cooperative, healthy appearing, comfortable and no acute distress Orientation/consciousness: patient oriented x3 Neck Neck: Yes normal visual inspection and Yes no JVD Resp Effort & Inspection: normal respiratory effort Auscultation: clear to auscultation bilaterally, no crackles, no rales, no rhonchi and no wheezes Cardio Jugular venous distension: no JVD Rate: regular rate Rhythm: regular rhythm Heart sounds: S1 normal heart sound present, S2 normal heart sound present, no murmurs and no rubs Neuro General: patient oriented x3 Extrem General: Yes normal to inspection and No no pedal edema Psych Appearance: grossly normal Mental Status: mental status grossly normal Speech and movement: Normal speech and movement present Assessment & Plan Assessment & Plan (1) Abnormal EKG: Code(s): R94.31 - Abnormal electrocardiogram [ECG] [EKG] Category: Medical Plan: Cardiac evaluation for EKG showing PVCs. Echocardiogram done 11/16/2023 showing EF 60-65%, no valve abnormalities and no regional wall motion abnormalities. An exercise stress test done 11/16/2023 showing exercise 5 minutes, no anginal symptoms and no EKG changes of ischemia. A Holter monitor was done on 11/16/2023 for 7 days showing sinus rhythm with average heart rate 72, occasional PACs with frequent short SVT runs, longest 40 beats at 184, rare PVCs. She tells me she did do exercising and hiking when she wore the heart monitor. She does not notice any heart palpitations. She does drink excessive amounts of caffeinated coffee each day. She recently reduced her amount from 10 down to 5-6. Test results reviewed with her in detail. Mechanism of PACs, SVT runs discussed. EF is normal so heart is tolerating this currently. In the absence of symptoms will hold off on beta-bessy/calcium channel bessy. Instructed to further reduce her caffeine intake and preferably switch to decaf. Continue physical activity as tolerated. ED care if ever needed for sustained rapid heart palpitations. Vagal maneuver reviewed. Cardiology follow-up in 1 year, sooner if needed. (2) PVC (premature ventricular contraction): Code(s): I49.3 - Ventricular premature depolarization Category: Medical Plan: Rare PVCs seen on Holter monitor (3) SVT (supraventricular tachycardia): Code(s): I47.10 - Supraventricular tachycardia, unspecified Category: Medical Plan: As above (4) Essential hypertension: Code(s): I10 - Essential (primary) hypertension Category: Medical Plan: Normal range at this time. No med changes made. Plan Time spent on chart review, documentation, interview and assessment Coding Level of Care Code Est Pt Level 4 (16760) Diagnoses Abnormal EKG R94.31 PVC (premature ventricular contraction) I49.3 SVT (supraventricular tachycardia) I47.10 Essential hypertension I10 Time Spent (min) 28
== END 2023-11-26 08:43 | disposition home or self-care (01) ==
PROVIDERS: Visit Provider Nurse Practitioner Family
DX: R94.31 Abnormal electrocardiogram [ECG] [EKG] (principal); I49.3 Ventricular premature depolarization; I47.10 Supraventricular tachycardia, unspecified; I10 Essential (primary) hypertension
CPT/HCPCS: 99214

== ENCOUNTER → 2023-11-26 08:08 | Outpatient (BNVA) | payer OTHER, SELFPAY | PROVIDERS: Visit Provider Nurse Practitioner Family ==

== ENCOUNTER 2023-12-22 08:39 | Outpatient (AMB) | payer MEDICARE, SELFPAY ==
--- NOTE | 2023-12-22 09:07 | MHC.PC.OV ---
Vital Signs 12/22/23 09:13 Height 5 ft 2 in Weight 127 lb BMI 23.2 BP 124/80 Blood Pressure Location Lt brachial Position Sitting Pulse 64 Pulse Source Pulse Oximeter Pulse Oximetry (%) 98 Oxygen Delivery Method Room Air Intake Visit Reasons: Follow-up osteopenia, due for bone density/mammogr Intake Note: pt here for follow-up. Last mammogram and bone density 09/10/21 Allergies No Known Allergies [NKA] Allergy (Verified 12/22/23 09:46) Medication List - Last Reconciled 12/22/23 by Ashley Cole MD cholecalciferol (vitamin D3) 50 mcg PO DAILY flaxseed oil 1,000 mg PO DAILY multivitamin 1 tab PO DAILY No Known Home Meds Tobacco use date assessed: 12/22/23 Fall risk assessment: No Falls in past year Last assessed Fall Risk: 12/22/23 Dental Screening Dental Screen Date: 12/22/23 Did you have a dental visit in the last 12 months?: Yes Did you have a dental problem in the last 6 months where you did not have access to dental care?: No Was dental information given to patient?: Patient has dentist HPI Follow-up osteopenia, due for bone density/mammogr HPI Details 68-year-old lady here today for follow-up regarding her osteopenia and multiple sites, she is also overdue for repeat bone density screening and screening mammogram. Both last done in 2021. 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 King in [place] office. For routine skin cancer screening as well [facility] Medical History Rosacea Vaccine refused by patient Family history of early CAD Abnormal EKG Gilbert's disease History of shingles Osteopenia of multiple sites Surgical History Hx of appendectomy Hx of colonoscopy Family History Father HTN (hypertension) Lung cancer, Onset Age: 92 Mother HTN (hypertension) CHF (congestive heart failure) Sister Gilbert's disease HTN (hypertension) Brother FHx: early [place], Onset Age: 52 Brother HTN (hypertension) Atrial fibrillation, Onset Age: 50 CVA (cerebral vascular accident) Other Mild early onset dysthymic disorder, in full remission, with anxious distress, with pure dysthymic syndrome Social History Housing: House Patient Tobacco Use Status: Never used Tobacco e-Cigarette/Vaping Use: Never Used service: No Current occupational status: retired Current occupational exposures/hazards: No Cognitive needs: No Hearing needs: No Vision needs: Yes Questionnaire Thrive Questionnaire Date Thrive assessed: 08/20/23 GIA-7 AMB Questionnaire GIA-7 Date GIA - 7 assessed: 08/20/23 Source: Developed by Drs. Vic Thompson, Shavon Abreu, Alex Moreno and colleagues, with an educational brooke from [employer]. Review of Systems Const Details: Alert oriented x3, normal gait Eyes Details: Sees Dr. Thakkar yearly for eye exam Reports no additional complaints and Reports requires corrective lenses ENT Reports Normal hearing present and Denies dizziness Card Denies chest pain, Denies chest pain at rest, Denies chest pain with activity, Denies rapid heart rate, Denies pedal edema, Denies edema, Denies leg edema, Denies lightheadedness, Denies palpitations, Denies dyspnea, Denies dyspnea on exertion and Denies orthopnea Resp Denies cough, Denies dyspnea and Denies dyspnea on exertion GI Denies hematochezia and Denies change in stool character Musc Denies abnormal gait, Denies limited range of motion, Denies muscle cramps, Denies muscle weakness, Denies numbness, Denies radiating pain into limb, Denies stiffness and Denies tingling Skin/Breast Reports rash Neuro Reports Normal hearing present, Denies abnormal gait, Denies dizziness, Denies numbness, Denies Sensory deficit (Neuro) and Denies tingling Endo Denies palpitations Physical exam (Primary Care) Vital Signs: Last Vital Signs Pulse 64 12/22/23 09:13 BP 124/80 12/22/23 09:13 Pulse Ox 98 12/22/23 09:13 Oxygen Delivery Method Room Air 12/22/23 09:13 BMI result Body Mass Index 23.2 Tobacco/Smoking Status: Tobacco use Status Tobacco use date assessed 12/22/23 12/22/23 09:09 Patient Tobacco Use Status Never used Tobacco 12/22/23 09:07 e-Cigarette/Vaping Use Never Used 12/22/23 09:07 Thrive Assessment: Date of Thrive Assessment Date Thrive assessed 08/20/23 12/22/23 09:07 Const General: no acute distress and alert Orientation/consciousness: patient oriented x3 HENMT Face and sinus: Yes face symmetric Mouth: Normal oral and palatal mucosa present and moist mucous membranes Eyes Conjunctivae: conjunctivae normal Sclerae: sclerae normal Pupils: Equal, round and reactive pupils present EOM: EOMs intact bilaterally Neck Neck: Yes full ROM and Yes no lymphadenopathy Thyroid: Thyroid normal Resp Effort & Inspection: normal respiratory effort and able to speak in complete sentences Auscultation: clear to auscultation bilaterally Cardio Rate: regular rate Rhythm: regular rhythm Heart sounds: S1 normal heart sound present, S2 normal heart sound present and Murmur heart sound present systolic blowing and at the left sternal border GI Inspection: Yes normal to inspection Palpation (GI): Soft to palpation Auscultation: normal bowel sounds and no bruits General: Yes no CVA tenderness Back/Spine/Pelvis Back: no CVA tenderness and No back tenderness Skin Other: Erythematous nodule on right ala nasi, scattered madison colored macules on face and forearms Neuro General: patient oriented x3, gait normal, moves all extremities, no focal motor deficits and CN's II-XI intact bilaterally Cranial nerves: Yes Equal, round and reactive pupils present and Yes Normal hearing present Cognition (Neuro): normal cognition Gait exam (Neuro): Normal gait present Motor exam (neuro): 5/5 motor strength present throughout Sensory Exam: No Sensory deficit (Neuro) Extrem General: Yes normal to inspection, Yes full ROM, Yes no pedal edema and Yes normal gait Results Reviewed Results Reviewed: Name: Luis Angel Craft Age/Sex: 68/F : 1955 [id number] Unit#: [id number] Attend Dr: Ashley Cole MD Re09/23/23 Status: DEP REF Location: [facility] Disch: SPEC : [id number] BAIRON: 09/23/23 STATUS: COMP REQ : [id number] RECD: 09/23/[address]: Ashley Cole MD COMP: 09/23/23 ENTERED: 09/23/[address]: ORDERED: BMP Test Result Flag Reference Sodium 139 135-145 mmol/L Potassium 4.2 3.3-5.1 mmol/L CL 104 96-108 mmol/L CO2 27 22-29 mmol/L Gap 12 12-20 BUN 13 9-16 mg/dL Creat 0.70 0.5-1.4 mg/dL EGFR > 60 NOTE: For -Brazilian individuals, multiply the result by 1.210. Chronic Kidney Disease: Estimated GFR < 60 mL/min/1.73m2 Severe Kidney Disease: Estimated GFR < 15 mL/min/1.73m2 Glucose, Random 92 60-115 mg/dL CA 10.2 # 8.4-10.2 mg/dL Name: Venancio,Luis Angel E Age/Sex: 68/F : 1955 Unit#: [id number] Attend Dr: Ashley Cole MD Re08/10/23 Status: DEP REF Location: [facility] Disch: SPEC : [id number] BAIRON: 08/10/23 STATUS: COMP REQ : [id number] RECD: 08/10/[address]: Ashley Cole MD COMP: 08/10/23 ENTERED: 08/10/[address]: ORDERED: Glu Fasting, Lipid Panel, Vitamin D 25-OH Test Result Flag Reference FBS 95 60-99 mg/dL Triglyceride 41 <150 mg/dL Desirable Triglyceride: less than 150 mg/dL Borderline High Triglyceride 150-199 mg/dL High Triglyceride: 200-499 mg/dL Very High Triglyceride: greater than or equal to 5OO mg/dL Cholesterol 206 H <200 mg/dL Desirable Cholesterol: less than 200 mg/dL Borderline High Cholesterol: 200-239 mg/dL High Cholesterol: greater than 239 mg/dL LDL Calculated 109 H <100 mg/dL Desirable LDL: less than 100 mg/dL Near Optimal/Above Optimal LDL: 110-129 mg/dL Borderline High LDL: 130-159 mg/dL High LDL: 160-189 mg/dL Very High LDL: greater than or equal to 190 mg/dL HDL 89 >40 mg/dL Desirable HDL: greater than 40 mg/dL Note: This HDL assay may give artificially low results in patients with liver disease. Vit D 25-OH Tot 59.4 >30 ng/mL Health Based Reference Values* < 20 ng/mL Deficient 20-30 ng/mL Insufficient > 30 ng/mL Sufficient *Beth GERMAN. N Engl J Med. 2007;[id number]:[id number] Assessment and Plan Assessment & Plan (1) Osteopenia of multiple sites: Code(s): M85.89 - Other specified disorders of bone density and structure, multiple sites Plan: Reinforced importance of doing regular weight-bearing exercise at least 30 minutes daily, continue taking calcium from dietary sources and continue with vitamin-D 3 supplements at least 50 mcg or 2000 units daily.. Repeat bone density scan ordered (2) Screening for Malignant Neoplasm of Skin: Code(s): Z. - Encounter for screening for malignant neoplasm of skin Plan: Dermatology consult obtained (3) Breast cancer screening by mammogram: Code(s): - Encounter for screening mammogram for malignant neoplasm of breast Plan: Ordered screening mammogram to be done together with a bone density scan (4) Rosacea: Code(s): L71.9 - Rosacea, unspecified Plan: Referred to dermatology Orders: Orders MM tomosynthesis screening BI 12/22/23 Z. - Encounter for screening mammogram for malignant neoplasm of breast, M85.89 - Other specified disorders of bone density and structure, multiple sites XR DEXA axial skeleton 12/22/23 Z. - Encounter for screening mammogram for malignant neoplasm of breast, M85.89 - Other specified disorders of bone density and structure, multiple sites Referrals Dermatology Referral - Encounter for screening for malignant neoplasm of skin, L71.9 - Rosacea, unspecified Coding Level of Care Code Est Pt Level 4 (44899) Diagnoses Osteopenia of multiple sites M85.89 Screening for Malignant Neoplasm of Skin Z Breast cancer screening by mammogram Rosacea L71.9
[2023-12-22 09:13] VITALS: BP 124/80; PULSE 64; O2SAT 98; BMI 23.2
== END 2023-12-22 10:05 | disposition home or self-care (01) ==
PROVIDERS: Visit Provider Internal Medicine
DX: M85.89 Other specified disorders of bone density and structure, multiple sites (principal); Z12.83 Encounter for screening for malignant neoplasm of skin; Z12.31 Encounter for screening mammogram for malignant neoplasm of breast; L71.9 Rosacea, unspecified
CPT/HCPCS: 99214

== ENCOUNTER 2024-01-19 07:39 | Outpatient (REF) | payer OTHER, SELFPAY ==
--- NOTE | ~2024-01-19 | MM_ITS ---
EXAMINATION: BONE DENSITOMETRY CLINICAL INDICATION: Other specified disorders of bone density and structure. COMPARISON: Previous BD dated 09/10/2021 and baseline BD dated 07/19/2019. TECHNIQUE: Using a DGTS DXA System (software version: 13.1) manufactured by [employer], dual-energy x-ray absorptiometry was performed of the lumbar spine and left hip. The images are of good technical quality. Summary results are attached. FINDINGS: LEFT FEMUR, NECK: Current: BMD 0.769 g/cm2, Z-score 0.0, T-score -1.9, osteopenia. Prior: BMD 0.704 g/cm2. Baseline: BMD 0.799 g/cm2. LEFT FEMUR, TOTAL: Current: BMD 0.812 g/cm2, Z-score 0.1, T-score -1.6, osteopenia, 8.6% increase from previous, 4.4% decrease from baseline (<5% change is not significant). Prior: BMD 0.748 g/cm2. Baseline: BMD 0.849 g/cm2. AP SPINE L1-L3 (excluding L4): The data of L1-L4 has been changed to exclude the L4 vertebral body, because degenerative sclerosis at this level may cause overestimation of lumbar spine density. Current: BMD 0.925 g/cm2, Z-score -0.1, T-score -2.0, osteopenia, 5.6% decrease from previous, 7.4% decrease from baseline (<5% change is not significant). Prior: BMD 0.980 g/cm2. Baseline: BMD 0.999 g/cm2. IDENTIFIED RISK FACTORS: Menopause. HISTORY OF FRACTURE: None listed. MEDICATIONS: Calcium supplements or multivitamin, vitamin D. MM/XR DEXA axial skeleton IMPRESSION: 1. DIAGNOSIS: Osteopenia based on the lowest T-score value of -2.0 in the lumbar spine applying World Health Organization criteria. 2. 10-YEAR FRACTURE RISK PREDICTION, FRAX: Major osteoporotic fracture (clinical spine, forearm, hip or shoulder) 11.4%. Hip fracture 2.3%. 3. Treatment Recommendations: NOF guidelines recommend consideration for treatment in postmenopausal women and men age 50 and older presenting with the following: -A hip or vertebral (clinical or morphometric) fracture. -T-score less than or equal to -2.5 at the femoral neck or spine after appropriate evaluation to exclude secondary causes. -Low bone mass at the hip or spine and a 10-year fracture probability by FRAX of greater than or equal to 3% for hip fracture or greater than or equal to 20% for major osteoporotic fracture based on the [place] adapted WHO algorithm. 4. Other Recommendations: All treatment decisions require clinical judgment and consideration of individual patient factors, including patient preferences, comorbidities, previous drug use, risk factors not captured in the FRAX model (e.g. frailty, falls, vitamin D deficiency, increased bone turnover, interval significant decline in bone density) and possible under or overestimation of fracture risk by FRAX. Additional medical evaluation for secondary cause of low bone mineral density may be appropriate. FUTURE SCAN RECOMMENDATION: People with diagnosed cases of osteoporosis or at high risk for fracture should have regular bone mineral density tests. For patients eligible for Medicare, routine testing is allowed once every 2 years. The testing frequency can be increased to one year for patients who have rapidly progressing disease, those who are receiving or discontinuing medical therapy to restore bone mass, or have additional risk factors.
== END 2024-01-19 07:40 | disposition home or self-care (01) ==
LOC: HO.MAMMO 07:39
PROVIDERS: PCP Internal Medicine; Visit Provider Internal Medicine
DX: Z12.31 Encounter for screening mammogram for malignant neoplasm of breast (principal); Z13.820 Encounter for screening for osteoporosis; M85.89 Other specified disorders of bone density and structure, multiple sites; Z78.0 Asymptomatic menopausal state
CPT/HCPCS: 77063; 77067; 77080

== ENCOUNTER → 2024-01-19 08:00 | Outpatient (BNV) | payer MEDICARE, SELFPAY | PROVIDERS: PCP Internal Medicine; Visit Provider Radiology Diagnostic Radiology | DX: Z12.31 Encounter for screening mammogram for malignant neoplasm of breast (principal) | CPT/HCPCS: 77063; 77067 ==

== ENCOUNTER 2024-10-28 08:01 | Outpatient (AMB) | payer MEDICARE, SELFPAY ==
[2024-10-28 08:43] VITALS: BP 140/78; PULSE 69; TEMP 36.6; O2SAT 99; BMI 22.2
--- NOTE | 2024-10-28 08:43 | AM.OFFWIN_ITS ---
Intake Vital Signs 10/28/24 08:43 Height 5 ft 2 in Weight 121 lb 8 oz BMI 22.2 BP 140/78 H Blood Pressure Location Rt brachial Position Sitting Pulse 69 Pulse Source Pulse Oximeter Temp 97.9 F Temp Source Oral Pulse Oximetry (%) 99 Oxygen Delivery Method Room Air Intake Visit Reasons: EP ?LT ear infection Intake Note: Pt presents to the office today for c/o left ear being blocked x10 days and lightheadedness. Patient Tobacco Use Status: Never used Tobacco Allergies No Known Allergies [NKA] Allergy (Verified 10/28/24 08:45) HPI EP ?LT ear infection HPI Details This is a 69-year-old female patient who presents to the walk-in clinic today with report of a blocked left ear. She states this has been ongoing for about 10 days. Denies ear pain, fever, upper respiratory symptoms. Has tried [id number] Debrox drops and saline syringes, however this has not helped. [facility] Medical History Rosacea Vaccine refused by patient Family history of early CAD Abnormal EKG Gilbert's disease History of shingles Osteopenia of multiple sites Surgical History Hx of appendectomy Hx of colonoscopy Family History Father HTN (hypertension) Lung cancer, Onset Age: 92 Mother HTN (hypertension) CHF (congestive heart failure) Sister Gilbert's disease HTN (hypertension) Brother FHx: early [place], Onset Age: 52 Brother HTN (hypertension) Atrial fibrillation, Onset Age: 50 CVA (cerebral vascular accident) Other Mild early onset dysthymic disorder, in full remission, with anxious distress, with pure dysthymic syndrome Social History Housing: House Patient Tobacco Use Status: Never used Tobacco e-Cigarette/Vaping Use: Never Used service: No Current occupational status: retired Current occupational exposures/hazards: No Cognitive needs: No Hearing needs: No Vision needs: Yes Review of Systems Const All systems reviewed & are unremarkable except as noted in HPI and below Physical Exam Vital Signs: Last Vital Signs Temp 97.9 F 10/28/24 08:43 Pulse 69 10/28/24 08:43 BP 140/78 H 10/28/24 08:43 Pulse Ox 99 10/28/24 08:43 Oxygen Delivery Method Room Air 10/28/24 08:43 BMI result Body Mass Index 22.2 Const General: cooperative, healthy appearing, comfortable and no acute distress Limitations: no limitations HEENT Head: Yes normal to inspection Ears: external ears normal, TM normal on the right, Abnormal EAC present cerumen impaction on the left and unable to visualize TM on the left General nose exam: Normal external nose present Face and sinus: Yes normal facial exam Mouth: Normal oral and palatal mucosa present Resp Effort & Inspection: normal respiratory effort and able to speak in complete sentences Skin General skin exam: no rashes or lesions noted Extrem General: Yes no clubbing, cyanosis or edema Psych Appearance: grossly normal Mental Status: mental status grossly normal Speech and movement: Normal speech and movement present Office Procedures Cerumen Removal From which ear canal was the cerumen removed: left Removal: irrigation Notes: patient tolerated procedure well, no complications and ear canal clear 25460-Ukg Irrigation/Lavage Assessment & Plan Assessment & Plan (1) Impacted cerumen, left ear: Code(s): H61.22 - Impacted cerumen, left ear Plan: Irrigation of left ear done in the office with good results. TM visualized and normal. Patient does seem to have a mild otitis externa, once I was able to fully visualize canal. I am going to start her on ofloxacin drops, which we reviewed use of. If symptoms recur, she can return to the clinic for further evaluation. She verbalizes understanding and agrees to plan. Medications: New ofloxacin 0.3% Apply 10 drops into left ear daily for 7 days. 10 drps otic (ear) left DAILY 7 days 10 mL 0RF H60.92 - Unspecified otitis externa, left ear Coding Level of Care Code Est Pt Level 4 (95218) Diagnoses Impacted cerumen, left ear H61.22 CPT Codes Office Procedure - CPT: 52575-Ttf Irrigation/Lavage ([id number])
== END 2024-10-28 09:27 | disposition home or self-care (01) ==
PROVIDERS: PCP Internal Medicine; Visit Provider Nurse Practitioner Family
DX: H61.22 Impacted cerumen, left ear (principal)

== ENCOUNTER → 2024-10-28 08:01 | Outpatient (BNVA) | payer MEDICARE, SELFPAY | PROVIDERS: PCP Internal Medicine | DX: H61.22 Impacted cerumen, left ear (principal) | CPT/HCPCS: 69209; 99212 ==

== ENCOUNTER 2025-01-02 09:29 | Outpatient (AMB) | payer MEDICARE, SELFPAY ==
--- NOTE | 2025-01-02 09:43 | A.OFFVIS_ITS ---
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 She has no new cardiac symptoms. Remains very functional and active and has no exertional chest pain or shortness of breath. She denies any symptoms of palpitation including skipped heartbeats or prolonged palpitations. Denies any lightheadedness, syncope. Remains very active. [facility] Medical History (Updated 01/02/25 @ 10:04 by Neftali Gant MD) PVC (premature ventricular contraction) SVT (supraventricular tachycardia) Rosacea Vaccine refused by patient Family history of early CAD Abnormal EKG Gilbert's disease History of shingles Osteopenia of multiple sites Surgical History Hx of appendectomy Hx of colonoscopy Family History Father HTN (hypertension) Lung cancer, Onset Age: 92 Mother HTN (hypertension) CHF (congestive heart failure) Sister Gilbert's disease HTN (hypertension) Brother FHx: early [place], Onset Age: 52 Brother HTN (hypertension) Atrial fibrillation, Onset Age: 50 CVA (cerebral vascular accident) Other Mild early onset dysthymic disorder, in full remission, with anxious distress, with pure dysthymic syndrome Social History Housing: House Patient Tobacco Use Status: Never used Tobacco e-Cigarette/Vaping Use: Never Used service: No Current occupational status: retired Current occupational exposures/hazards: No Cognitive needs: No Hearing needs: No Vision needs: Yes Review of Systems Const Denies chills, Denies fatigue, Denies fever(s), Denies frequent falls, Denies weakness, Denies weight gain and Denies weight loss ENT Denies dizziness Card Denies chest pain, Denies leg edema, Denies lightheadedness, Denies palpitations, Denies dyspnea and Denies dyspnea on exertion Resp Denies cough, Denies dyspnea and Denies dyspnea on exertion GI Denies hematochezia Musc Denies abnormal gait, Denies muscle weakness, Denies numbness, Denies radiating pain into limb and Denies tingling Neuro Denies Abnormal speech present, Denies abnormal gait, Denies dizziness, Denies frequent falls, Denies numbness, Denies tingling and Denies weakness Endo Denies fatigue and Denies palpitations Physical Exam Vital Signs: Last Vital Signs Pulse 83 01/02/25 09:45 BP 120/62 01/02/25 09:45 BMI result Body Mass Index 22.6 Const General: cooperative, comfortable, no acute distress, alert, awake, Physically active and anxious Nutritional Appearance: thin Orientation/consciousness: patient oriented x3 Limitations: no limitations HEENT Head: Yes normocephalic and Yes atraumatic Face and sinus: Yes other (Recent surgery for basal cell carcinoma with swollen right side of the face) Neck Neck: Yes trachea midline, Yes supple and Yes no JVD Resp Effort & Inspection: normal respiratory effort Auscultation: clear to auscultation bilaterally Cardio Jugular venous distension: no JVD Palpation: normal PMI Rate: regular rate Rhythm: regular rhythm Heart sounds: S1 normal heart sound present, S2 normal heart sound present, no click, no gallops, no murmurs and no rubs GI Auscultation: normal bowel sounds Skin General skin exam: no rashes or lesions noted Neuro General: patient oriented x3 and no focal motor deficits Speech: No Abnormal speech present Extrem General: Yes no clubbing, cyanosis or edema Psych Appearance: grossly normal Affect: Anxious affect present Office Procedures EKG Details: EKG shows normal sinus rhythm nonspecific ST-T changes 87298-[id number], Complete Assessment & Plan Assessment & Plan (1) Cardiac arrhythmia: Code(s): I49.9 - Cardiac arrhythmia, unspecified Category: Medical Plan: Cardiac arrhythmia with cardiac excitability with both PACs with short runs of SVT as well as PVCs in this elderly woman without any obvious symptoms. She has no symptoms related to this. We discussed about management given lack of symptoms to not pursue any pharmacotherapy. She is agreeable to that. Advised to reduce stimulant intake. She is advised to continue maintain active lifest yle. Blood pressure is currently well optimized. Lipids are being pursue through office. She is advised to call me with any new symptoms. Will follow up in the clinic in 2 years time, sooner p.r.n.. Thank you for allowing me to partake in her care Coding Level of Care Code Est Pt Level 3 (14004) Complex EM visit Add On G2211 Diagnoses Cardiac arrhythmia I49.9 CPT Codes EKG - CPT: 98247-[id number], Complete ([id number])
[2025-01-02 09:45] VITALS: BP 120/62; PULSE 83; BMI 22.6
--- OUTSIDE RECORDS SUMMARY | 2025-01-02 10:17 | XMS_ITS | Continuity of Care Document ---
Author Organization [facility] ter Address [address] [place] [id number]- Care Team Providers Care Sausage Canner Name Role Phone Kelsey NIXON, Ashley Mckoy Primary Care Physician [place] [facility] [place]28[place] - 12/28/[address] [address] Discharge Disposition: A-D/C Home Attending Physician: Stephan Zacarias MD Admitting Physician: Stephan Zacarias MD Referring Physician: Stephan Zacarias MD Encounter Type: Disch Daystay Allergies, Adverse Reactions, Alerts No Known Allergies Medications acetaminophen 325 mg oral tablet 650 mg, 2, tablet, By Mouth, Every 6 hours, for 7 days, # 56 tablet, Refills 0, Tot. Refills 0, Acute 01/04/25 8:42:00 AM EDT, 12/28/24 8:42:00 AM EDT, Route to Pharmacy Electronically, [facility]/pharmacy #[id number], Partial fill upon patient request if the prescription is for a schedule II opioid drug., 158, cm, 12/28/24 6:57:00 EDT, Height Start Date: 12/28/24 Stop Date: 01/04/25 Status: Ordered Quantity: 56.0 Unit: tablet Repeat number: 1 Augmentin 875 mg-125 mg oral tablet 1 tablet, By Mouth, Every 12 hours, for 7 days, # 14 tablet, 0 Refills, Acute 01/04/25 8:43:00 AM EDT, 12/28/24 8:43:00 AM EDT, Tablet, [id number], Partial fill upon patient request if the prescription is for a schedule II opioid drug., 158, cm, 12/28/24 6:57:00 EDT, Height Start Date: 12/28/24 Stop Date: 01/04/25 Status: Ordered Quantity: 14.0 Unit: tablet Repeat number: 1 Cholecalciferol By Mouth, 0 Refills, Maintenance, 12/26/24 8:34:00 AM EDT, Partial fill upon patient request if the prescription is for a schedule II opioid drug. Start Date: 12/26/24 Status: Ordered Repeat number: 1 Flax Oil oral capsule 0 Refills, Maintenance, 12/26/24 8:34:00 AM EDT, Partial fill upon patient request if the prescription is for a schedule II opioid drug. Start Date: 12/26/24 Status: Ordered Repeat number: 1 ibuprofen 400 mg oral tablet 400 mg, 1, tablet, By Mouth, Every 6 hours, PRN, for 7 days, # 28 capsule, Refills 0, Tot. Refills 0, Acute 01/04/25 8:42:00 AM EDT, Pain , Mild, 12/28/24 8:42:00 AM EDT, Route to Pharmacy Electronically, [facility]/pharmacy #[id number], Partial fill upon patient request if the prescription is for a schedule II opioid drug., 158, cm, 12/28/24 6:57:00 EDT, Height Start Date: 12/28/24 Stop Date: 01/04/25 Status: Ordered Quantity: 28.0 Unit: capsule Repeat number: 1 Multivitamin 0 Refills, Maintenance, 12/26/24 8:34:00 AM EDT, Partial fill upon patient request if the prescription is for a schedule II opioid drug. Start Date: 12/26/24 Status: Ordered Repeat number: 1 oxyCODONE 5 mg oral tablet 5 mg, 1, tablet, By Mouth, Every 6 hours, PRN, for 7 days, # 7 tablet, Refills 0, Tot. Refills 0, Acute 01/04/25 8:43:00 AM EDT, Pain , Severe, 12/28/24 8:43:00 AM EDT, Route to Pharmacy Electronically, [facility]/pharmacy #[id number], Partial fill upon patient request if the prescription is for a schedule II opioid drug., 158, cm, 12/28/24 6:57:00 EDT, Height Start Date: 12/28/24 Stop Date: 01/04/25 Status: Ordered Quantity: 7.0 Unit: tablet Repeat number: 1 Problem List Condition Confirmation Course Effective Dates Status Health St atus Informant Heart murmur Confirmed Active PVCs (premature ventricular contractions) Confirmed Active Social History Social History Type Response Smoking Status Never (less than 100 in lifetime) entered on: 12/26/24 Sex Female Sex Representation Female (finding) Implantable Device List Procedure Provider Procedure Date Device Type Site Reconstruction Clarisse Zacarias MD, Stephan Zach 12/28/24 Un known Nose Device Identifier Serial Number Lot or Batch Number Manufacturing Date Expiration Date Distinct Identification Code MRI Safety Implantable Status Assigning Authority Unknown Unknown Unknown Unknown 11/08/26 Unknown Unknown Active Unk nown History and physical note * Event Display: History and Physical Hospital Authored Date: Cardiology * Event Display: Cardiac Rhythm Strips Authored Date: Note * Lilia Villalba RN: PERFORM Event Display: Discharge/Transfer Note Hospital Authored Date: Nursing Discharge Note Entered On: 12/28/2024 11:15 EDT Performed On: 12/28/2024 11:14 EDT by Lilia Villalba RN Nursing Discharge Note 2 Discharge Time : 12/28/2024 11:10 EDT Discharge Level of Care at Discharge : Home/Senior Living/Foster Care Patient Left Unit Via : Wheelchair Patient Accompanied Off Unit with : Responsible adult DC Instructions Provided & Signed by Pt : Yes Patient Understands D/C Instructions : Yes Patient Instructions Discharge Signed : Yes Did Pt have Specialty Bed or Wound Vac : No Lilia Villalba RN - 12/28/2024 11:14 EDT * Event Display: Discharge/Transfer Note Hospital Authored Date: * Lilia Villalba RN: PERFORM Event Display: Patient Education/Instruction Authored Date: [id number] Surgery Adult Discharge Instructions [address] [address] Name: KEVIN KOCH : 1955?? Visit: 12/28/2024 05:31?? Current Date: 12/28/2024 09:51 ?? Account: [id number]?? Surgery Discharge Instructions We would like to thank you for allowing us to assist you with your healthcare needs. The following includes patient education materials and information regarding your injury/illness. Our entire staffstrives to provide an excellent experience for our patients and their families. PLEASE ENSURE YOU FOLLOW-UP PER THE INSTRUCTIONS BELOW! ?? YOUR OPINION IS IMPORTANT TO US! Please complete the survey you may receive by mail or email. Your feedback will be used to make improvements to the healthcare experiences of our patients and their families. Surveys are administered by [employer]. ?? If further treatment with your primary care physician or another doctor is recommended, it is important for you to keep the appointment. Call your primary care physician or return to the Emergency Department immediately if your condition worsens, fails to improve, or new symptoms develop. If you need to find a doctor, you can call [facility] Link for a referral at [phone] or toll free at [phone]) or log in to [email or web address].. ?? [facility], in keeping with [facility] guidance, no longer requires face masks for staff, patientsor visitors in most situations. Similiar to time spent indoors at other locations, there is the chance that you were exposed to repiratory viruses during your time with us (such as flu or COVID-19). If you develop symptoms concerning for a viral respiratory infection, please seek testing (and treatment if indicated) from your medical provider or home test kit. ?? You can view and manage your care through the patient portal or by using a [facility] [place] of your choosing. [employer] is a website that allows you to securely view your medical information including your hospital discharge summary, office visit summaries, medications and follow-up visits. You can also request appointments, renew medications, and request access to your medical information using a [facility] [place] of your choosing, or just ask a question. You are entitled to know the individuals who participated in your treatment. This information is available within your medical record and will be provided upon your request. You can enroll at [email or web address] or register d uring your next office visit. You have been discharged from [facility], Patient Care Unit: PANU??. If you have any questions regarding these instructions after you leave, please call us and we will be happy to assist you. [facility] Your Care Team Attending Physician Stephan Zacarias MD?? Discharging Providers Cindy Munoz MD Reason for Admission RIGHT NOSE MOHS DS Primary Care Provider Kelsey NIXON , Ashley Mckoy? Advance Directive Health Care Proxy on File No Patient refuses to discuss What to do next Instructions From Your Doctor Can shower but avoid direct spray to the surgical site. ??Head of bed elevated. ??No icing the surgical site. ??No strenuous activity. ??Clean incisions gently/daily with warm soapy water and qtip then apply THIN layer of bacitracin to the incision. ??Follow up as instructed. ??Prescriptions (ibuprofen, tylenol, augmentin, oxycodone) sent to pharmacy on file. ? Orders?? Unit Discharge Criteria Met, ??12/28/24 8:44:00 EDT?? Prescriptions??, ??12/28/24 8:44:00 EDT?? Instructions from your Care Team No nose blowing. Patient may gently was incision with warm soap water and a Q-tip after 24 hrs. Then apply a thin layer of Bacitracin using a Q-tip twice a day. No ice. Scheduled Follow-Up Appointments Thursday 1:20 PM EDT ?? With: Lindsay Kim Where: [facility] Plastic Surgery [address] [place] [phone]- Status: Pending Thursday 2:40 PM EDT ?? With: Lindsay Kim Where: [facility] [address] [place] [phone]- Status: Pending Thursday 1:20 PM EDT ?? With: Stephan Zacarias MD Where: [facility] Plastic Surgery [address] [place] [phone]- Status: Pending Thursday 11:20 AM EDT ?? With: Stephan Zacarias MD Where: [facility] [address] [place] [phone]- Status: Pending You Need to Schedule the Following Appointments Follow Up with??Stephan Zacarias MD Where: ?? Discharge Medications KEVIN KOCH:1955 Visit Date:12/28/2024 Medications: Please continue your medications until treatment is completed or stopped by your provider. You may resume your daily prescription medications. Discuss any questions related to medications with your provider. What How Much When Instructions Next Dose New Acetaminophen (acetaminophen 325 mg oral tablet) 2 tab(s) Oral Every 6 hours Duration: [address] [facility]/pharmacy #[id number] as scheduled New Amoxicillin-Clavulanate (Augmentin 875 mg-125 mg oral tablet) 1 tab(s) Oral Every 12 hours Duration: [address] [facility]/pharmacy #[id number] as scheduled New Ibuprofen (ibuprofen 400 mg oral tablet) 1 tab(s) Oral Every 6 hours as needed for Pain , Mild Duration: [address] [facility]/pharmacy #0373 as needed. New Oxycodone (oxyCODONE 5 mg oral tablet) 1 tab(s) Oral Every 6 hours as needed for Pain , Severe Duration: [address] [facility]/pharmacy #0373 Unchanged Cholecalciferol Oral Unchanged Flax (Flax Oil oral capsule) Unchanged Multivitamin Pharmacy Information [facility]/pharmacy #[id number]: [address], [place] [phone] Allergies (NKA means No Known Allergies) NKA Education Materials Below is the list of Educational Leaflet Providered with your Discharge Instructions. [employer] Patient Education - Understanding Mohs Surgery?? [employer] Patient Education - Surgery Medical Daystay Surgical Overnight Discharge Instructions?? Valuables and Belongings I fully understand and agree that [facility] accepts no responsibility for all my personal property including clothing, toilet articles, radios, jewelry, dentures, hearing aids, rings, money, or any other property that is in my possession or is brought to me after admission. I understand certain valuables may be placed in a hospital safe for a short period of time. I understand that the hospital is not liable for loss or damage due to accident, fire, or other natural occurrence while said property is in the safe. I accept full responsibility for any personal property that I keep with me, and will not hold the hospital responsible in case of loss or disappearance. I acknowledge that i have been encouraged to send valuables and belongings home. ?? Review of Valuable and Belonging List: With patient Disposition of Belongings: Other: pacu locker Date for Pt to Sign Valuables/Belongings: 12/28/24 06:57:00 ?? Valuables & Belongings ?? Clothes Electronic devices Jewelry Monetary Items Personal devices Miscellaneous Medications (Valuables) Valuables at Bedside Jacket, Pants, Shirt, Shoes, Undergarments ? Glasses ? Valuables Sent Home ? Valuables Sent to Security ? Valuables Sent to Locker ? Other Discharge Information ? Pulmonary Rehab Status?? Pulmonary Rehab Discharge Status?? Respiratory Rate: 18 br/min ? Common Emergency Awareness Tips IS IT A STROKE? Act FAST and Check for these signs: FACE Does the face look uneven? ARM Does one arm drift down? SPEECH Does their speech sound strange? TIME Call at any sign of stroke ?? Heart Attack Signs Chest discomfort: Most heart attacks involve discomfort in the center of the chest and lasts more than a few minutes, or goes away and comes back. It can feel like uncomfortable pressure, squeezing, fullness or pain. Discomfort in upper body: Symptoms can include pain or discomfort in one or both arms, back, neck, jaw or stomach. Shortness of breath: With or without discomfort. Other signs: Breaking out in a cold sweat, nausea, or lightheaded. Remember, MINUTES DO MATTER. If you experience any of these heart attack warning signs, call to get immediate medical attention! ?? Smoking can increase your chances of developing chronic health problems and can cause harmful effects to other family members in your house. If you smoke, you are strongly encouraged to quit. Please call [employer] Link at [phone] or [phone]) or log in to [email or web address] for referrals to smoking cessation programs. ?? The National Suicide Prevention Hotline is available 09/02 if you or someone you know needs to find a reason to keep living. By calling 7-429-973-xghd (5564) you'll be connected to a skilled, trained counselor at a crisis center in your area. SURGERY DISCHARGE INSTRUCTIONS SIGNATURE PAGE KEVIN KOCH Location:[facility] Registration Date and Time:12/28/2024 05:31 EDT Primary Care Physician: Kelsey NIXON , Ashley Mckoy, Attending Physician: Rell NIXON, Stephan Serrano, I KEVIN KOCH, have received the above patient education materials/instructions and have verbalized understanding. If ambulance or transport services are being used I further acknowledge being givena choice of service. ?? If you need to contact me, please call me at this number: . Patient/Maritime Guard Name: Patient/Maritime Guard Signature: Relationship to Patient: Witness Name/Signature: Date: * Derrick Leung RN, Lilia Ambriz: PERFORM Event Display: Patient Education Leaflets Authored Date: [id number] Understanding Mohs Surgery ?? [address] Understanding Mohs Surgery Mohs surgery is used to treat certain kinds of skin cancer. It's named for Dr. Carson Robb, who developed it in the 1930s. This surgery is done in stages. The goal is to remove the entire skin cancer while leaving as much healthy skin as possible. During the surgery, a very thin layer of the tumor and a small area around it are removed. The surgeon then examines the specimen under a microscope. If cancer cells are seen, another layer from thatexact area is removed and checked in the lab. This process is repeated until no more cancer cells are found. During standard, non-Mohs surgery, the tumor and a larger area of what looks to be an edge of normal, healthy tissue around it (called a margin) are removed and sent for testing. The goal is that no cancer cells will be found in the margin. If they are, more surgery or other kinds of cancer treatment will be needed. In contrast, Mohs surgery slowly and precisely??removes the tumor in layers that are examined rightaway. This makes it more likely that all the cancer is removed. It also lowers the chance of it coming back. Mohs surgery lets the health care provider protect more healthy tissue than with standard tumor removal. This means there's less scarring, too. Why Mohs surgery is done Mohs surgery is most often used for basal cell cancers and squamous cell cancers on the skin that are: ??? Large or fast-growing. ??? Likely to spread. ??? Likely to come back, or have come back after treatment. ??? On an area where it's important to remove as little tissue as possible (like the nose,lips, ears, eyelids, scalp, genitals, feet, or hands). ??? Surrounded by edges or borders that are hard to see. Some health care providers use Mohs surgery to treat certain small minimally invasive melanoma skincancers. ?? How Mohs surgery is done The surgery is most often done in an office or surgery center. It's an outpatient procedure. This means you go home after the surgery is done. Still, the surgery can take several hours. During the surgery: ??? You might change into a patient gown or stay in your regular clothes. Your body will be positioned so that the health care provider can get to the area that needs treatment. ??? The area to be treated might be marked with a pen. ??? A drape or cover is put over the area and a bright light is used to see it. ??? You'll stay awake during this surgery. A tiny needle is used to put numbing medicine into the area around the tumor. This keeps you from feeling pain during the surgery. ??? A small,sharp knife, called a scalpel, is used to remove the first layer of tissue. The area is covered with a small bandage while you wait. ??? You might stay in the procedure room or move to a waiting area. ??? The tissue is examined in an on-site lab to see if and where cancer cells might be left. This can take an hour or longer. During this waiting time, you can read or watch TV. ??? If cancer cells were seen, you go back to the surgical room and more numbing medicine is injected, if needed. Then another layer of the tumor is removed and checked in the lab. This process is repeated until no cancer cells are found in the removed tissue. Once the tumor is totally removed, you and your surgeon can decide how best to repair the surgery site. The repair may be done right away, or it may be planned for another day. ?? Risks of Mohs surgery Risks of the surgery include: ??? Bleeding. ??? Infection at the surgery site. ??? Nerve damage. ??? Pain. ??? Problems with reconstruction. ??? Rarely, the skin cancer comes back, and more treatmentis needed. ??? Reopening of the incision after surgery. ??? Scarring. ??? Severe bruising. ?? Last Reviewed Date: 2024 00:00:00 ?? [id number] [employer]. All rights reserved. This information is not intended as a substitute for professional medical care. Always follow your healthcare professional's instructions. ?? * Derrick Leung RN, Lilia Ambriz: PERFORM Event Display: Patient Education Leaflets Authored Date: [id number] Surgery Medical Daystay Surgical Overnight Discharge Instructions ?? 295 Medical Daystay/Surgical Overnight Discharge Instructions ? Since your coordination and judgment may be altered by medication and/or anesthesia, a responsible adult must drive you home from the hospital. ? If you have received medication for pain or sedation while under our care, you should not drive, operate machinery, drink alcohol, or sign any legal documents for 24 hours.?? You should have someone with you at home tonight. ? Remain at home the day of discharge.?? You may be up and about unless otherwise instructed by your physician. ? You may resume your daily prescription medication schedule.?? Any depressant medication should be avoided for 24 hours unless otherwise instructed by your surgeon or anesthesiologist. ? Call your physician for a follow-up appointment.? If you experience unusual or severe pain not relied by your pain medication, excessive bleedingor drainage, persistent nausea and vomiting, excessive swelling or redness, foul odor from incisionsite or fever over 100.6F, you need to call your physician. ? A follow-up phone call by a nurse will be made the day after your procedure.?? If you have stayed with us over night, you will not be receiving a follow-up phone call. ? Nausea and vomiting are a common side effect of prescription pain medication.?? We recommend that pills are not taken on an empty stomach.?? While taking any prescription pain medication you should not drive or drink alcohol. ? Patient Care team information Care Team Personnel Name: Kelsey NIXON , Ashley Mckoy Position: Reference Physician Member Role: PCP Address: [address] Telecom: Care Team Related Persons Name: ELROY BELLE Insurance Providers Guarantor name: JERI Health Plan Information #: 1 Payer: MEDICARE B Payer Identifier: JERI Member Number: [id number] Group Number: [id number] Subscriber Identifier: [id number] Relationship to Subscriber: self Coverage Type: NA Coverage Verification Date: Telecom: Address: [facility] Plan Information #: 2 Payer: [employer] SECONDARY ONLY Payer Identifier: JERI Member Number: [id number] Group Number: [id number] Subscriber Identifier: [id number] Relationship to Subscriber: self Coverage Type: Medicare Other Coverage Verification Date: Telecom: Address:
== END 2025-01-02 10:02 | disposition home or self-care (01) ==
LOC: HO.HCS 09:30
PROVIDERS: PCP Internal Medicine; Visit Provider Internal Medicine Cardiovascular Disease
DX: I49.9 Cardiac arrhythmia, unspecified (principal)
CPT/HCPCS: 93010; 99213; G2211

== ENCOUNTER → 2025-01-02 09:29 | Outpatient (BNVA) | payer MEDICARE, SELFPAY | PROVIDERS: PCP Internal Medicine; Visit Provider Internal Medicine Cardiovascular Disease | DX: I49.9 Cardiac arrhythmia, unspecified (principal) | CPT/HCPCS: 93005; 99212 ==

== ENCOUNTER 2025-01-26 07:58 | Outpatient (AMB) | payer OTHER, SELFPAY ==
--- OUTSIDE RECORDS SUMMARY | 2025-01-25 23:59 | XMS_ITS | Continuity of Care Document ---
Author Organization [facility] Address [address] [place] [address]- Care Team Providers Care Lead Sewage Plant Operator Name Role Phone Kelsey NIXON, Ashley Mckoy Primary Care Physician Encounter [facility] Date(s): 12/26/24 - 01/25/25 [facility] [address] [place] [address]- Attending Physician: Mili Chacko Admitting Physician: Mili Chacko Referring Physician: Admtr ArOsiel Encounter Type: Triage Allergies, Adverse Reactions, Alerts No Known Allergies Medications Cholecalciferol By Mouth, 0 Refills, Maintenance, 12/26/24 [...] Date: 12/26/24 Status: Ordered Repeat number: 1 Multivitamin 0 Refills, Maintenance, 12/26/24 8:34:00 AM EDT, Partial fill upon patient request if the prescription is for a schedule II opioid drug. Start Date: 12/26/24 Status: Ordered Repeat number: 1 Problem List Condition Confirmation Course Effective Dates Status Health St atus Informant Heart murmur Confirmed Active PVCs (premature ventricular contractions) Confirmed Active Social History Social History Type Response Smoking Status Never (less than 100 in lifetime) entered on: 12/26/24 Sex Female Sex Representation Female (finding) Implantable Device List Procedure Provider Procedure Date Device Type Site Reconstruction Stephan Lord MD 12/28/24 Un known Nose Device Identifier Serial Number Lot or Batch Number Manufacturing Date Expiration Date Distinct Identification Code MRI Safety Implantable Status Assigning Authority Unknown Unknown Unknown Unknown 11/08/26 Unknown Unknown Active Unk nown Patient Care team information Care Team Personnel Name: Kelsey NIXON , Ashley Mckoy Position: Reference Physician Member Role: PCP Address: [address] [place], [place] [address] Telecom: Care Team Related Persons Name: YOSHIELROY QUEZADA Insurance Providers Guarantor name: [employer] Health Plan Information #: 1 Payer: MEDICARE B Payer Identifier: NA Member Number: [id number] Group Number: [id number] Subscriber Identifier: [id number] Relationship to Subscriber: self Coverage Type: NA Coverage Verification Date: Telecom: Address: [facility] Information #: 2 Payer: [facility] Payer Identifier: NA Member Number: [id number] Group Number: [id number] Subscriber Identifier: [id number] Relationship to Subscriber: self Coverage Type: Medicare Other Coverage Verification Date: Telecom: Address:
--- NOTE | 2025-01-26 08:07 | AM.OFFVISMDC ---
Intake Vital Signs 01/26/25 08:12 Height 5 ft 2 in Weight 124 lb BMI 22.7 BP 126/62 Blood Pressure Location Rt brachial Position Sitting Respiration 15 Temp 97.6 F Temp Source Oral Intake Visit Reasons: AWV Intake Note: Pt is here today for her SWV: last mammogram 01/19/24, bone density scan 01/19/24, colonoscopy 2024 Allergies No Known Allergies (NKA) Allergy (Verified 01/26/25 08:22) HPI AWV HPI Details AWV ? 70 year old lady with history of osteopenia in multiple sites and Gilbert's disease, presents for her ? Annual Wellness Visit, initial visit. She is up-to-date with her breast cancer screening, with last mammogram done 01/19/2024 which showed negative findings, and had a bone density done at the same time which showed presence of osteopenia in multiple sites. No history of fractures.? She is up-to-date with her lipid and diabetes screening, both showing normal findings in 2023. She does not get vaccines She had a screening colonoscopy done in [address] Damon with negative findings. Due again this year. No family history of colon cancer would like do Cologuard testing instead. ? Medical / Social History Reviewed? Past Medical History ?Yes . ? [place] of Care / Care Team list updated ?Yes . ? Surgical/Hospitalization History ?Yes . ? Current Medications (including OTC and supplements) ?Yes . ? Family History ?Yes . ? Tobacco Control form ?Yes . ? AUDIT-C (Alcohol use) form ?Yes . ? Illicit drug use in Social History ?Yes . ? Current diagnosis of depression? ?No ? Appropriate PHQ2/PHQ9 completed ?Yes . ? Data entered by ?Director Digital Catalogue and reviewed by provider ? Fall Risk ? Fall History? Have you had any falls with injury in the past year? ?No . ? Have you had two or more falls in the past year? ?No . ? Fall Risk Assessment: ?No falls in the past year . ? HRA filled out by the patient, reviewed by Provider and scanned. ? AWV ? Balance? Romberg ?negative . ? Tandem walk ?Yes . ? Walk and Turn ?Yes . ? Rise from sit to stand ?Yes . ?Vision? Corrective lens , wears reading glasses ? Vision screen -?up-to-date sees Dr. Thakkar ?Hearing? Whisper test ?pass . ?Written Plan?Completed. See Patient Documents - healthcare proxy and MOLST form completed.? HPI Comments History of Present Illness Details Bone density done in 2023 showed presence of osteopenia in multiple sites, no history of fractures. Takes vitamin D3 supplements daily and has been trying to incorporate lot of calcium in her diet. Due for another repeat bone density scan next year Has been noticing some tremors in both hands, usually at rest, no history of Parkinson's disease in the family. Denies any decrease in strength, no numbness tingling, has not been dropping things or having difficulty in grasping things. Has history of hypercholesterolemia, following a healthy diet and has been exercising regularly. Has history of cardiac arrhythmia, recently seen by Dr. Gant, who decided not to start any pharmacotherapy as she is currently asymptomatic. Has been pursuing an active lifestyle, reduce stimulants in her diet . Recently diagnosed to have basal carcinoma on ala nasi right, excised by Yogesh and had reconstructive surgery on her nose done by Dr. Stephan Zacarias in [facility] 12/27/2024. Sees Dermatology yearly [facility] Medical History (Updated 01/26/25 @ 09:04 by Ashley Cole MD) Benign essential tremor Basal cell carcinoma (BCC) of ala nasi PVC (premature ventricular contraction) SVT (supraventricular tachycardia) Rosacea Vaccine refused by patient Family history of early CAD Abnormal EKG Gilbert's disease History of shingles Osteopenia of multiple sites Surgical History Hx of appendectomy Hx of colonoscopy Family History Father HTN (hypertension) Lung cancer, Onset Age: 92 Mother HTN (hypertension) CHF (congestive heart failure) Sister Gilbert's disease HTN (hypertension) Brother FHx: early [place], Onset Age: 52 Brother HTN (hypertension) Atrial fibrillation, Onset Age: 50 CVA (cerebral vascular accident) Other Mild early onset dysthymic disorder, in full remission, with anxious distress, with pure dysthymic syndrome Social History Housing: House Patient Tobacco Use Status: Never used Tobacco e-Cigarette/Vaping Use: Never Used service: No Current occupational status: retired Current occupational exposures/hazards: No Cognitive needs: No Hearing needs: No Vision needs: Yes Female Reproductive History Menstrual Date of Mammogram: 01/19/24 (Negative) Date of last Bone Density Screenin01/19/24 (Osteopenia of multiple sites) Questionnaire Medicare Wellness Checkup [age] What gender do you identify with?: female During the past 4 weeks, how much have you been bothered by emotional problems such as feeling anxious, depressed, irritable, sad or downhearted, and blue?: not at all During the past 4 weeks, has your physical & emotional health limited your social activities with family, friends, neighbors, or groups?: not at all During the past 4 weeks, how much bodily pain have you generally had?: no pain During the past 4 weeks, was someone available to help you if you needed & wanted help?: yes, quite a bit During the past 4 weeks, what was the hardest physical activity you could do for at least 2 minutes?: very heavy Can you get to places out of walking distance without help? (For eg., can you travel alone on buses, taxis or drive your car?): Yes Can you go shopping for groceries or clothes without someone's help?: Yes Can you prepare your own meals?: Yes Can you do your housework without help?: Yes Because of any health problems, do you need the help of another person with your personal care needs such as eating, bathing, dressing or getting around the house?: No Can you handle your own money without help?: Yes During the past 4 weeks, how would you rate your health in general?: very good During the past 4 weeks how have things been going for you?: very well; could hardly better Are you having difficulties driving your car?: no Do you always fasten your seat belt when you are in a car?: yes, usually During past 4 weeks, have you been bothered by the following: never: Falling or dizzy when standing up, Trouble eating well?, Teeth or denture problems?, Problems using the telephone? and Tiredness or fatigue? and often: Sexual problems? Have you fallen 2 or more times in the past year?: No Are you afraid of falling?: No Are you a smoker?: no During the past 4 weeks, how many drinks of wine, beer, or other alcoholic beverages did you have?: no alcohol at all Do you exercise for about 20 minutes 3 or more times a week?: yes, most of the time Have you been given information to help with the following?: no: Hazards in your house that might hurt you? and no: Keeping track of your medications? How often do you have trouble taking medicines the way you have been told to take them?: I do not have to take medicine How confident are you that you can control & manage most of your health problems?: very confident What is your race?: White Mini Mental State Exam (MMSE) Orientation What is the (year) (season) (date) (day) (month)?: year (2024), season (summer), date (01/26/2025), day () and month (January) Where are we (state) (county) (town or city) (hospital) (floor)?: state ([place]), county ([place]), town or city ([place]) and hospital/clinic ([facility]) Score Score: 9 Activity of Daily Living Bathing - sponge bath, tub bath or shower: receives no assistance (gets in/out by self, if usual bathing means Dressing - getting clothes from closets & drawers, including inner/outer garments & fasteners.: gets clothes & gets completely dressed without help Toileting - going to the 'toilet room' for urine/bowel elimination & cleaning self/arranging clothes: goes to toilet room, cleans self, arranges clothes without help Transfer: moves in & out of bed and chair without help (may use support object) Feeding: feeds self without help Total Score: 0 Information obtained from: patient Using telephone: independent Traveling: independent Shopping: independent Preparing meals: independent Housework: independent Taking medicine: independent Managing money: independent PHQ-9 Over the last 2 weeks, how often have you been bothered by any of the following problems? 1. Little interest or pleasure in doing things: not at all 2. Feeling down, depressed, or hopeless: not at all 3. Trouble falling or staying asleep, or sleeping too much: not at all 4. Feeling tired or having little energy: not at all 5. Poor appetite or overeating: not at all 6. Feeling bad about yourself - or that you are a failure or have let yourself or your family down: not at all 7. Trouble concentrating on things, such as reading the newspaper or watching television: not at all 8. Moving or speaking so slowly that other people could have noticed. Or the opposite - being so fidgety or restless that you have been moving around a lot more than usual: not at all 9. Thoughts that you would be better off or of hurting yourself in some way: not at all Total score: 0 Depression Screening Interpretation: Negative Depression Screening Done: Yes 12511 - PHQ-9 Billing: Yes Source: Developed by Drs. Vic Thompson, Shavon Abreu, Alex Moreno and colleagues, with an educational brooke from [employer]. Review of Systems Const All systems reviewed & are unremarkable except as noted in HPI and below Neuro Denies Abnormal speech present Physical Exam Vital Signs: BMI result Body Mass Index 22.7 Const General: no acute distress, alert and Physically active Nutritional Appearance: thin Orientation/consciousness: patient oriented x3 Limitations: no limitations HEENT Head: Yes normocephalic and Yes atraumatic Neck Neck: Yes supple and Yes no JVD Resp Effort & Inspection: normal respiratory effort Auscultation: clear to auscultation bilaterally Cardio Jugular venous distension: no JVD Palpation: normal PMI Rate: regular rate Rhythm: regular rhythm Heart sounds: S1 normal heart sound present, S2 normal heart sound present and no murmurs GI Auscultation: normal bowel sounds Skin Other: Faint scar on right side of nose, no surrounding swelling or erythema seen Neuro Other: Faint tremors noted in outstretched hands General: patient oriented x3, gait normal, tone normal, moves all extremities, Normal light touch and pain sensation, no focal motor deficits and normal sensation to monofilament Speech: No Abnormal speech present Motor exam (neuro): 5/5 motor strength present throughout Extrem General: Yes no clubbing, cyanosis or edema Psych Appearance: grossly normal Assessment & Plan Assessment & Plan (1) Encounter for initial annual wellness visit (AWV) in Medicare patient: Code(s): Z00.00 - Encounter for general adult medical examination without abnormal findings Plan: Medical wellness checklist reviewed, discussed with patient and updated. Up-to-date with her screening mammogram, patient states that she will schedule repeat mammogram this year. Cologuard ordered for colon cancer screening. Patient declines getting any vaccines (2) Osteopenia of multiple sites: Code(s): M85.89 - Other specified disorders of bone density and structure, multiple sites Plan: Reminded to do regular weight-bearing exercises at least 3 to 4 times a week, continue taking adequate vitamin-D 3 supplements and calcium from dietary sources. Repeat another bone density scan next year (3) Gilbert's disease: Code(s): E80.4 - Gilbert syndrome Plan: Currently asymptomatic (4) Advanced directives, counseling/discussion: Code(s): Z71.89 - Other specified counseling Plan: Initiated the conversation about Advanced Directives. Advanced Directives help patients prepare for current and future decisions about their medical treatment and place of care. Discussed with patient that it is a process where a patients current condition and prognosis are reviewed, their wishes for information regarding their illness are elicited, and likely medical dilemmas are presented and options discussed. Healthcare proxy and MOLST form completed today. These forms can be amended as needed, reviewed yearly and make changes as needed (5) Benign essential tremor: Code(s): G25.0 - Essential tremor Plan: Patient is not bothered by it, no indication for treatment at this time (6) Hypercholesterolemia: Code(s): E78.00 - Pure hypercholesterolemia, unspecified Plan: Last fasting lipids are within normal limits in 2023. Will recheck again next year. Continue with adherence to healthy eating habits and regular exercise. Fasting labs ordered to do before next appointment (7) Vaccine refused by patient: Code(s): Z28.20 - Immunization not carried out because of patient decision for unspecified reason Plan: Patient does not want to get any vaccination (8) Cardiac arrhythmia: Code(s): I49.9 - Cardiac arrhythmia, unspecified Qualifiers: Arrhythmia type: unspecified cardiac arrhythmia Qualified Code(s): I49.9 - Cardiac arrhythmia, unspecified Plan: Patient recently seen by Dr. Gant, patient without any symptoms. Reinforced importance of maintaining an active lifestyle, adhering to healthy eating habits and avoid stimulants Orders: Orders Vitamin D 25-OH Total 1 Year E78.00 - Pure hypercholesterolemia, unspecified, E80.4 - Gilbert syndrome, G25.0 - Essential tremor, I49.9 - Cardiac arrhythmia, unspecified, M85.89 - Other specified disorders of bone density and structure, multiple sites, Z28.20 - Immunization not carried out because of patient decision for unspecified reason Alanine Aminotransferase 1 Year E78.00 - Pure hypercholesterolemia, unspecified, E80.4 - Gilbert syndrome, G25.0 - Essential tremor, I49.9 - Cardiac arrhythmia, unspecified, M85.89 - Other specified disorders of bone density and structure, multiple sites, Z28.20 - Immunization not carried out because of patient decision for unspecified reason Lipid Panel 1 Year E78.00 - Pure hypercholesterolemia, unspecified, E80.4 - Gilbert syndrome, G25.0 - Essential tremor, I49.9 - Cardiac arrhythmia, unspecified, M85.89 - Other specified disorders of bone density and structure, multiple sites, Z28.20 - Immunization not carried out because of patient decision for unspecified reason Basic Metabolic Panel Fasting 1 Year E78.00 - Pure hypercholesterolemia, unspecified, E80.4 - Gilbert syndrome, G25.0 - Essential tremor, I49.9 - Cardiac arrhythmia, unspecified, M85.89 - Other specified disorders of bone density and structure, multiple sites, Z28.20 - Immunization not carried out because of patient decision for unspecified reason Aspartate Amino Transferase 1 Year E78.00 - Pure hypercholesterolemia, unspecified, E80.4 - Gilbert syndrome, G25.0 - Essential tremor, I49.9 - Cardiac arrhythmia, unspecified, M85.89 - Other specified disorders of bone density and structure, multiple sites, Z28.20 - Immunization not carried out because of patient decision for unspecified reason Complete Blood Count Auto Diff 1 Year E78.00 - Pure hypercholesterolemia, unspecified, E80.4 - Gilbert syndrome, G25.0 - Essential tremor, I49.9 - Cardiac arrhythmia, unspecified, M85.89 - Other specified disorders of bone density and structure, multiple sites, Z28.20 - Immunization not carried out because of patient decision for unspecified reason Referrals Cologuard Test Z12.11 - Encounter for screening for malignant neoplasm of colon, Z12.12 - Encounter for screening for malignant neoplasm of rectum Quality Reporting (2019) Depression/Bipolar (159/160/161/177) PHQ-9: Total score: 0 Coding Level of Care Code Medicare First (G0438) Est Pt Level 4 (91732) Diagnoses Encounter for initial annual wellness visit (AWV) in Medicare patient Z00.00 Osteopenia of multiple sites M85.89 Gilbert's disease E80.4 Advanced directives, counseling/discussion Z71.89 Benign essential tremor G25.0 Hypercholesterolemia E78.00 Vaccine refused by patient Z28.20 Cardiac arrhythmia, unspecified cardiac arrhythmia type I49.9 Arrhythmia type: unspecified cardiac arrhythmia CPT Codes Advance Care Planning - Time spent: 16-45 minutes ([id number]) Additional Codes PHQ-9 - 74359 - PHQ-9 Billing: Yes ([id number]) Advance Care Planning Advance Care Planning discussion: Completed/Scanned Date of discussion: 01/26/25 Who was present: Patient Forms completed: Health Care Proxy and MOLST Time spent: 16-45 minutes Actual minutes spent: 15
[2025-01-26 08:12] VITALS: BP 126/62; RESP 15; TEMP 36.4; BMI 22.7
== END 2025-01-26 09:01 | disposition home or self-care (01) ==
LOC: HO.HMCC 07:59
PROVIDERS: PCP Internal Medicine; Visit Provider Internal Medicine
DX: E80.4 Gilbert syndrome (principal); G25.0 Essential tremor; E78.00 Pure hypercholesterolemia, unspecified; I49.9 Cardiac arrhythmia, unspecified; M85.89 Other specified disorders of bone density and structure, multiple sites; Z71.89 Other specified counseling; Z28.20 Immunization not carried out because of patient decision for unspecified reason

== ENCOUNTER → 2025-01-26 07:58 | Outpatient (BNVA) | payer MEDICARE, SELFPAY | PROVIDERS: PCP Internal Medicine; Visit Provider Internal Medicine | DX: Z00.00 Encounter for general adult medical examination without abnormal findings (principal); M85.89 Other specified disorders of bone density and structure, multiple sites; E80.4 Gilbert syndrome; G25.0 Essential tremor; I49.9 Cardiac arrhythmia, unspecified; Z71.89 Other specified counseling | CPT/HCPCS: 96127 ==

== ENCOUNTER 2025-03-16 08:19 | Outpatient (REF) | payer MEDICARE, SELFPAY ==
--- NOTE | ~2025-03-16 | MM_ITS ---
EXAMINATION: MM SCREENING DIGITAL BREAST TOMOSYNTHESIS, BILATERAL CLINICAL INFORMATION: Screening. Asymptomatic. COMPARISON: Comparison made to multiple prior, most recent January 19, 2024, and most remote July 19, 2019. TECHNIQUE: Digital breast tomosynthesis is performed in mediolateral oblique and craniocaudal views along with computer-aided detection (CAD). FINDINGS: BREAST COMPOSITION: The breasts are heterogeneously dense, which may obscure small masses (ACR BI-RADS breast composition Category c). RIGHT BREAST: Approximately 1.2 cm asymmetry in the retroareolar plane central breast at 5.7 cm from the nipple seen on MLO view (best seen on MLO 21/45, which localizes it in the slightly lateral breast). No suspicious calcifications are seen. LEFT BREAST: No significant masses, suspicious calcifications or other abnormalities are seen. MM/MM tomosynthesis screening BI IMPRESSION: RIGHT BREAST: Asymmetry in the retroareolar plane/central breast posterior depth on the MLO view, possibly located in the lateral breast on the orthogonal plane. LEFT BREAST: Negative, no mammographic evidence of malignancy. Normal interval follow-up is recommended in 12 months. ASSESSMENT: BI-RADS 0 - Incomplete: Needs additional Imaging. RECOMMENDATION: 1. Additional views of the right breast 2. Targeted ultrasound if warranted after review of the additional views. 3. Radiology department staff will contact the patient for additional imaging. FOLLOW-UP: Additional Imaging required This examination should not preclude the clinical evaluation of a suspicious palpable abnormality. This patient's information was entered into a reminder system with a target due date for their next mammogram. Electronically signed by: Shu Negrete MD 03/18/2025 04:33 PM EDT
== END 2025-03-16 08:20 | disposition home or self-care (01) ==
LOC: HO.MAMMO 08:19
PROVIDERS: PCP Internal Medicine; Visit Provider Internal Medicine
DX: Z12.31 Encounter for screening mammogram for malignant neoplasm of breast (principal)
CPT/HCPCS: 77063; 77067

== ENCOUNTER → 2025-03-16 08:45 | Outpatient (BNV) | payer MEDICARE, SELFPAY | PROVIDERS: PCP Internal Medicine; Visit Provider Radiology Body Imaging | DX: Z12.31 Encounter for screening mammogram for malignant neoplasm of breast (principal) | CPT/HCPCS: 77063; 77067 ==

== ENCOUNTER 2025-04-10 10:03 | Day surgery (SDC) | payer MEDICARE, SELFPAY ==
--- OUTSIDE RECORDS SUMMARY | 2025-03-22 10:40 | XMS_ITS ---
Author Organization [facility] Address [address] [place] [phone] Care Team Providers Care Automotive Parts Interpreter Name Role Phone Kelsey NIXON, Ashley Primary Care Provider Vic Magaña [phone] Allergies No Known Allergies REASON FOR VISIT Patient presents today for a positive cologuard Medications Medication SIG (Take, Route, Frequency, Duration) Notes Start Date End Date Status Multi Vitamin - 1 tablet Orally Once a day Active Vitamin D 25 MCG (1000 UT) 1 tablet Orally Once a day Active Flaxseed Oil 1200 MG as directed Orally Active Immunizations Vaccine Route Administration Date Status Comme nts Influenza Unknown 03/22/2025 Refused Social History Tobacco Use: Social History Observation Description Date Details (start date - stop date) Never Smoker NA - NA Tobacco Control (Standard) Question Answer Notes Tobacco use: Nonsmoker AUDIT-C (Standard) Question Answer Notes Did you have a drink containing alcohol in the p ast year? No Points 0 Interpretation Negative Vital Signs Temperature 98.2 degrees Fahrenheit 03/22/20 25 Blood pressure systolic 001 mm Hg 03/22/20 25 Blood pressure diastolic 01 mm Hg 025 Height 62 in 03/22/2025 Weight 125.4 lbs 03/22/2025 BMI 22.93 kg/m2 03/22/2025 Procedures Procedure Date Ordered Date Performed Result Body Sit e COLONOSCOPY 03/22/2025 N/A Encounters Encounter Location Date Provider Diagnosis [facility] [address] [place] [phone] 03/22/2025 Vic Summers Positive colorectal cancer screening using Cologuard test R19.5 Assessments Encounter Date Diagnosis (ICD Code) Assessment Notes Treatment Notes Treatment Clinical Notes Section Notes 03/22/2025 Positive colorectal cancer screening using Cologuard test (ICD-10 - R19.5) Overall, Luis Angel appears quite well. Given her age, good clinical appearance, positive Cologuard test, and her last colonoscopy being about 10 years ago, I did recommend a follow-up colonoscopy for further screening purposes. We did review the rationale for this in regard to colorectal cancer prevention and/or early detection. Full consent has been obtained from her for this, including risks of bleeding and perforation. The procedure will be done with monitored anesthesia care. Luis Angel was comfortable with this plan. Thank you again for allowing me to participate in Luis Angel's care. I shall continue to keep you advised of her progress. Plan Of Treatment Pending Test Test Name Order Date COLONOSCOPY 03/22/2025 Next Appt Details Provider Name:Vic Summers , 04/10/2025 11:50:00 AM, [address] [place] [address], [id number], Provider Name:Vic Cabrera Melina , 07/04/2025 11:10:00 AM, [address] [place] [address], [address], [place], [phone], Progress Notes * LUIS ANGEL KOCH EDOB:1955 (70 yo F)Acc No.[id number]:03/22/2025 Progress Notes Patient: LUIS ANGEL HERNANDEZ Provider: Antolin Summers MD :1955 A ge:70 Y S ex:Female Date:03/22/2025 Address:[address] [place], [place] [id number] Pcp:Ashley Cole MD Subjective: * Chief Complaints: * 1 . Patient presents today for a positive cologuard. * HPI: i ncontinence: I saw Luis Angel in consultation today in regard to further evaluation of her positive Cologuard test. As you know, Luis Angel is a healthy 70-year-old female who was found to have a positive Cologuard test in early February. She describes a negative colonoscopy in [address] Freida Damon. That was her 1 and only colonoscopy that she has had. She presently feels very well. She enjoys a good appetite and denies any significant heartburn or dysphagia. Her bowel movements are been regular and without any signs of bleeding. She denies any abdominal pain, signs of jaundice, nor unintentional weight loss. She denies any known family history of colorectal cancer. 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 Damon in 2014. * Surgical History: B balbir cell cancer as above 01/11, Appy . * Family History: F ather: . M other: , diagnosed with HTN (hypertension), Heart disease.? No family history of colon cancer or liver cancer. * Social History: T obacco Use: T obacco Control (Standard) T obacco use: N onsmoker. M iscellaneous: M arital status: . 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 D rug/Alcohol: A ELLIOT-C (Standard) D id you have a drink containing alcohol in the past year? N o,?Points 0 , I nterpretation N egative. * Medications: T aking Flaxseed Oil 1200 MG Capsule as directed Orally , Taking Vitamin D 25 MCG (1000 UT) Tablet 1 tablet Orally Once a day , Taking Multi Vitamin - Tablet 1 tablet Orally Once a day , Medication List reviewed and reconciled with the patient * Allergies: N .K.D.A. Objective: * Vitals: W t:125.4lbs, Ht:62in, BMI: 22.93 Index, BP:001/01mm Hg, Temp:98.2, Ht-cm: 157.48, Wt-k.88. Assessment: * Assessment: 1. P ositive colorectal cancer screening using Cologuard test - R19.5 (Primary) ? Overall, Luis Angel appears quite well. Given her age, good clinical appearance, positive Cologuard test, and her last colonoscopy being about 10 years ago, I did recommend a follow-up colonoscopy for further screening purposes. We did review the rationale for this in regard to colorectal cancer prevention and/or early detection. Full consent has been obtained from her for this, including risks of bleeding and perforation. The procedure will be done with monitored anesthesia care. Luis Angel was comfortable with this plan. Thank you again for allowing me to participate in Luis Angel's care. I shall continue to keep you advised of her progress. Plan: * Treatment: * Immunizations: Influenza (Not administered - Refused: Patient decision) * Procedure Codes: 4 [id number] DIAGNOSTIC COLONOSCOPY * Preventive Medicine: Urinary Incontinence: U rinary Incontinence A ssessment: A bsent, P tarun of care documented: N o, reason not specified. Screenings: F all Risk Screening F all Risk Assessment: N o falls in the past year, S creening: N o falls in the past year, A ssessment: N ot performed, no reason specified, P tarun of Care: N ot documented, no reason specified. * * The named appointment provid er may or may not be the originator of this progress note, and it is not deemed complete until electronically signed by the appointment provider. Sign off status: Pending * Provider: Antolin Summers MD Date: 03/22/2025 Generated for Zeanida liz/Adela/Leanderitting on: 03/23/2025 04:03 PM EDT History and Physical Notes * HPI (History of Present Illness) Category Sub-Category Detail Notes Category Not es incontinence I saw Luis Angel in consultation today in regard to further evaluation of her positive Cologuard test. As you know, Luis Angel is a healthy 70-year-old female who was found to have a positive Cologuard test in early February. She describes a negative colonoscopy in [address] Freida Damon. That was her 1 and only colonoscopy that she has had. She presently feels very well. She enjoys a good appetite and denies any significant heartburn or dysphagia. Her bowel movements are been regular and without any signs of bleeding. She denies any abdominal pain, signs of jaundice, nor unintentional weight loss. She denies any known family history of colorectal cancer.
--- OUTSIDE RECORDS SUMMARY | 2025-03-23 16:04 | XMS_ITS | Patient Health Record ---
Author Organization [facility] Address [address] [place] [phone] Care Team Providers Care Numerical Tool Programmer Name Role Phone Kelsey NIXON, Ashley Primary Care Provider Vic Magaña [phone] Allergies No Known Allergies Reason For Referral No Information Medications Medication SIG (Take, Route, Frequency, Duration) [...] Negative Vital Signs Temperature 98.2 degrees Fahrenheit 03/22/2025 Blood pressure diastolic 01 mm Hg 03/22/2025 Height 62 in 03/22/2025 Blood pressure systolic 001 mm Hg 03/22/2025 Weight 125.4 lbs 03/22/2025 BMI 22.93 kg/m2 03/22/2025 Procedures Procedure Date Ordered Date Performed Result Body Sit e COLONOSCOPY 03/22/2025 N/A Encounters Encounter Location Date Provider Diagnosis [facility] [address] [place] [phone] 03/22/2025 Vic Summers Positive colorectal cancer screening [...] Provider Name:Vic Summers , 04/10/2025 11:50:00 AM, [address] [place] [address], [id number], Provider Name:Vic Summers , 07/04/2025 11:10:00 AM, [address] [place] [address], [facility], [place], [address], Insurance Providers Payer Name Payer Address Payer Phone Subscriber Number Group Number Insured Name Patient Relationship to Insured Coverage Start Date Coverage End Date MEDICARE OF [place] [address] [place] [address] [id number] LUIS ANGEL KOCH Self - patient is the insured 8 MEDEX ATTN CLAIMS [address] [place] [address] [id number] ZEELUIS ANGEL Ramos Self - patient is the insured Medical (General) History Medical History History ICD Code Basal cell cancer near nasolabial area Denies MD,DM,CVA,Lung disease,renal dise ase Negative screening colonoscopy with Dr. Damon in 2014 Surgical History Surgery Date(Month/Year) Appy Basal cell cancer as above 01/11
--- NOTE | 2025-04-06 13:01 | HO.ANESPROP2 ---
Documented by User: Christy Coulter NP 04/06/25 13:02 HPI - Anesthesia Eval Consult details Narrative: 70yo F for Colonoscopy Follows [facility] for arrhythmias - PVCs, PACs, short runs of SVT - asymptomatic per 12/2024 office visit without need for any pharmacotherapy. Stable for 2 year routine f/u [facility] Active Problems Active Problems: All Active Problems Positive colorectal cancer screening using Cologuard test (Acute) Benign essential tremor (Acute) Basal cell carcinoma (BCC) of ala nasi (Acute) Cardiac arrhythmia (Acute) Rosacea (Acute) Hypercholesterolemia (Acute) Vaccine refused by patient (Acute) Family history of early CAD (Acute) Abnormal EKG (Acute) Gilbert's disease (Acute) Osteopenia of multiple sites (Acute) Past Medical History Medical History Positive colorectal cancer screening using Cologuard test Benign essential tremor Basal cell carcinoma (BCC) of ala nasi PVC (premature ventricular contraction) SVT (supraventricular tachycardia) Rosacea Vaccine refused by patient Family history of early CAD Gilbert's disease History of shingles Osteopenia of multiple sites Family History Family History Father HTN (hypertension) Lung cancer, Onset Age: 92 Mother HTN (hypertension) CHF (congestive heart failure) Sister Gilbert's disease HTN (hypertension) Brother FHx: early CO, Onset Age: 52 Brother HTN (hypertension) Atrial fibrillation, Onset Age: 50 CVA (cerebral vascular accident) Other Mild early onset dysthymic disorder, in full remission, with anxious distress, with pure dysthymic syndrome Surgical History Surgical History Hx of appendectomy Hx of colonoscopy Social History Social History Housing: House Patient Tobacco Use Status: Never used Tobacco e-Cigarette/Vaping Use: Never Used service: No Current occupational status: retired Current occupational exposures/hazards: No Cognitive needs: No Hearing needs: No Vision needs: Yes Meds Allergies Allergy/AdvReac Type Severity Reaction Status Date / Time No Known Allergies (NKA) Allergy Verified 01/26/25 08:22 Home Medications ?Medication ?Instructions ?Recorded ?Confirmed ?Last Taken ?Type flaxseed oil 1,000 mg capsule 1,000 mg PO DAILY 06/24/21 01/02/25 Unknown History multivitamin 1 tab PO DAILY 06/24/21 01/02/25 Unknown History cholecalciferol (vitamin D3) 25 50 mcg PO DAILY 12/22/23 01/02/25 Unknown History mcg (1,000 unit) capsule Assessment and Plan Assessment Anesthesia Assessment: Chart Reviewed Documented by User: Eliza Hammond MD 04/10/25 08:58 PMFSH Past Medical History Medical History Positive colorectal cancer screening using Cologuard test Benign essential tremor Basal cell carcinoma (BCC) of ala nasi PVC (premature ventricular contraction) SVT (supraventricular tachycardia) Rosacea Vaccine refused by patient Family history of early CAD Gilbert's disease History of shingles Osteopenia of multiple sites Family History Family History Father HTN (hypertension) Lung cancer, Onset Age: 92 Mother HTN (hypertension) CHF (congestive heart failure) Sister Gilbert's disease HTN (hypertension) Brother FHx: early CO, Onset Age: 52 Brother HTN (hypertension) Atrial fibrillation, Onset Age: 50 CVA (cerebral vascular accident) Other Mild early onset dysthymic disorder, in full remission, with anxious distress, with pure dysthymic syndrome Family history of problems with anesthesia: No Surgical History Surgical History Hx of appendectomy Hx of colonoscopy History of Problems with Anesthesia: No Social History Social History Housing: House Patient Tobacco Use Status: Never used Tobacco e-Cigarette/Vaping Use: Never Used service: No Current occupational status: retired Current occupational exposures/hazards: No Cognitive needs: No Hearing needs: No Vision needs: Yes Meds Allergies Allergy/AdvReac Type Severity Reaction Status Date / Time No Known Allergies (NKA) Allergy Verified 01/26/25 08:22 Home Medications ?Medication ?Instructions ?Recorded ?Confirmed ?Last Taken ?Type flaxseed oil 1,000 mg capsule 1,000 mg PO DAILY 06/24/21 01/02/25 Unknown History multivitamin 1 tab PO DAILY 06/24/21 01/02/25 Unknown History cholecalciferol (vitamin D3) 25 50 mcg PO DAILY 12/22/23 01/02/25 Unknown History mcg (1,000 unit) capsule Exam Airway Mallampati Class: III TM Dist: >3cm Neck ROM: Limited Heart: rrr Lungs: cta Assessment and Plan Assessment Anesthesia Assessment: Anesthesia Plan Discussed Final Anesthetic Review Family History of Problems with Anesthesia: No History of Problems with Anesthesia: No NPO: Yes ASA Class: III Final Preanesthetic Review: No Changes in Pt Med Stat, Meds/Allgs Chart Reviewed, Consent Obtained/Reviewed and Anes Risks/Benef Reviewed Patient Risk: Intermediate Procedure Risk: Low Anesthetic Plan Anesthetic Plan: MAC: and Agree w/ Assess. and Plan Disposition: Standard PACU
[2025-04-06 15:04] VITALS: BMI 22.7
[2025-04-10 10:47] VITALS: BP 136/71; PULSE 79; RESP 18; TEMP 36.6; O2SAT 99; BMI 21.8
[2025-04-10] MEDS: Lactated Ringers 1,000 ML 100 ML IVCONT (10:50)
[2025-04-10 13:52] VITALS: BP 112/62; PULSE 81; RESP 25; TEMP 36.4; O2SAT 98
--- NOTE | 2025-04-10 13:52 | P.BOP_ITS ---
Brief Operative Note Date of Service: 04/10/25 Pre-op diagnosis: + Cologuard Post-op diagnosis: other (Diverticulosis) Procedure: Colonoscopy to the cecum Surgeon: Vic Summers MD Anesthesia: MAC Was an [facility] used for this Procedure?: No Estimated blood loss (mL): 0 Pathology: none sent Condition: stable Disposition: PACU
[2025-04-10 14:00] VITALS: BP 106/67; PULSE 64; RESP 16; O2SAT 96
[2025-04-10 14:20] VITALS: BP 119/65; PULSE 65; RESP 19; TEMP 36.2; O2SAT 96
--- NOTE | 2025-04-11 00:37 | OP_ITS ---
DATE OF SERVICE: 04/10/2025 SURGEON: Vic Summers MD INDICATIONS: The patient presents for evaluation of positive Cologuard. Full consent has been obtained from her for this, including risks of bleeding and perforation. PREOPERATIVE DIAGNOSIS: Positive Cologuard test. POSTOPERATIVE DIAGNOSIS: PROCEDURE PERFORMED: Colonoscopy to the cecum. ESTIMATED BLOOD LOSS: COMPLICATIONS: ANESTHESIA: Monitored anesthesia care. ASSISTANTS: SPECIMENS: POSTOPERATIVE DIAGNOSES: Positive Cologuard test, diverticulosis and internal and external hemorrhoids. DESCRIPTION OF PROCEDURE: The patient was placed in the left lateral decubitus position. The digital rectal exam revealed external hemorrhoidal tissue. The Olympus video pediatric colonoscope was entered into the rectum and advanced to the cecum. Advancement to the cecum was difficult. However, once in the cecum, I did identify normal-appearing cecal pouch with appendiceal orifice, and a normal-appearing ileocecal valve. The entire cecum and ileocecal valve were well visualized and appeared normal. The scope was slowly withdrawn assessing all mucosal surfaces carefully. Preparation was excellent. I did not visualize any sign of polyps, colitis, nor angiodysplasia. There was a mild amount of sigmoid diverticulosis. In the rectum, scope was retroflexed visualizing internal hemorrhoids, but no other pathology. The rectal mucosa appeared normal. The scope was straightened and withdrawn from the patient. She tolerated the procedure well and was returned to the recovery area in stable condition. IMPRESSION: 1. Internal and external hemorrhoids. 2. Diverticulosis. PLAN: Given today's negative exam and her age, as well as a negative colonoscopy in 2014, and no family history of colon cancer, I advised her that I do not think she would need any further screening colonoscopies. She will otherwise see me on a p.r.n. basis. Vic Summers MD RMShanice/TUNDEL / [phone]
== END 2025-04-10 14:49 | disposition home or self-care (01) ==
PROVIDERS: PCP Internal Medicine; Visit Provider Internal Medicine
PROC: 0DJD8ZZ Inspection of Lower Intestinal Tract, Via Natural or Artificial Opening Endoscopic (ICD-10-PCS; CPT 45378; principal; 2025-04-10 11:50)
DX: R19.5 Other fecal abnormalities (principal); K57.30 Diverticulosis of large intestine without perforation or abscess without bleeding; K64.8 Other hemorrhoids; K64.4 Residual hemorrhoidal skin tags; C44.311 Basal cell carcinoma of skin of nose; E78.00 Pure hypercholesterolemia, unspecified; I49.3 Ventricular premature depolarization; I47.10 Supraventricular tachycardia, unspecified; G25.0 Essential tremor; E80.4 Gilbert syndrome; M85.89 Other specified disorders of bone density and structure, multiple sites; Z79.899 Other long term (current) drug therapy
CPT/HCPCS: 45378; J2003; J2704

== ENCOUNTER 2025-04-18 11:10 | Outpatient (REF) | payer MEDICARE, SELFPAY ==
--- OUTSIDE RECORDS SUMMARY | 2025-04-10 07:50 | XMS_ITS ---
Author Organization [facility] Address [address] [place] [address] Care Team Providers Care Croze Cutter Helper Name Role Phone Kelsey NIXON, Ashley Primary Care Provider Vic Magaña [phone] REASON FOR VISIT positive colon cancer screening using cologuard Encounters Encounter Location Date Provider Diagnosis [facility] Out[facility] [address] [place] [phone] 04/10/2025 Vic Summers Plan Of Treatment No Information Progress Notes * KEVIN KOCH EDOB:1955 (70 yo F)Acc No.[id number]:04/10/2025 COLON WITH MAC Patient: Jarad HOLMANRichard KEVIN Kulkarni Provider: Antolin Summers MD :1955 A ge:70 Y S ex:Female Date:04/10/2025 Address:[address] [place], [place] [phone] Pcp:Ashley Cole MD Subjective: * Chief Complaints: * 1 . Positive colon cancer screening using cologuard. * Medical History: Objective: * Vitals: Assessment: Plan: * Treatment: * * The named appointment provid er may or may not be the originator of this progress note, and it is not deemed complete until electronically signed by the appointment provider. Sign off status: Pending * Provider: Antolin Summers MD Date: 04/10/2025 Generated for Daphnei ng/Fajamalg/eTransmitting on: 04/18/2025 12:36 PM EDT
--- NOTE | ~2025-04-18 | MM_ITS ---
EXAMINATION(S): 1. MM DIAGNOSTIC DIGITAL BREAST TOMOSYNTHESIS, RIGHT 2. Targeted ultrasound of the right breast CLINICAL INFORMATION: Callback from screening for asymmetry in the upper breast at 5.7 cm from the nipple on the MLO view COMPARISON: Comparison made to multiple prior, most recent March 16, 2025, and most remote . TECHNIQUE: Digital breast tomosynthesis is performed in along with computer-aided detection (CAD). Synthesized 2D images are generated from the tomosynthesis. FINDINGS: BREAST COMPOSITION: There are scattered areas of fibroglandular density. RIGHT BREAST: Previously suggested asymmetry in the upper breast is pliable, but persists with spot compression at about 5 cm from the nipple. No definite correlate seen on the CC or XCCL views. Targeted ultrasound of the right breast was performed at the location of the mammographic finding. The survey throughout the upper outer quadrant did not reveal suspicious sonographic findings. MM/MM tomosynthesis added views R IMPRESSION: RIGHT BREAST: Pliable asymmetry in the upper breast middle depth on the MLO view without suspicious sonographic correlate. Probably benign. A 6-month follow-up mammogram is recommended. ASSESSMENT: BI-RADS: Category 3: Probably benign RECOMMENDATION: 6 Month F/U Results were provided to the patient at time of visit by the technologist. This patient's information was entered into a reminder system with a target due date for their next mammogram. Electronically signed by: Shu Negrete MD 04/18/2025 05:06 PM EDT Workstation: [id number]
--- OUTSIDE RECORDS SUMMARY | 2025-04-18 12:36 | XMS_ITS | Patient Health Record ---
Author Organization [facility] Address [address] [place] [phone] Care Team Providers Care Shot Grinder Operator Name Role Phone Ashley Cole MD Primary Care Provider Vic Magaña Unavailable [phone] Allergies No Known Allergies Reason For Referral [...] N/A Encounters Encounter Location Date Provider Diagnosis [facility] [address] [place] [phone] 04/10/2025 Vic Summers [facility] [address] [place] [phone] 03/22/2025 Vic Summers Positive colorectal cancer screening using Cologuard test R19.5 [facility] [address] [place] [address] [address] 04/06/2025 Vic Summers [facility] [address] [place] [phone] 04/09/2025 Vic Summers Assessments Encounter Date Diagnosis (ICD Code) Assessment [...] Test Test Name Order Date COLONOSCOPY 03/22/2025 Insurance Providers Payer Name Payer Address Payer Phone Subscriber Number Group Number Insured Name Patient Relationship to Insured Coverage Start Date Coverage End Date MEDICARE OF [place] [address] [place] [address] [id number] LUIS ANGEL KOCH Self - patient is the insured 8 MEDEX ATTN CLAIMS [address] [place] [address] [phone] [id number] LUIS ANGEL KOCH Self - patient is the insured Medical (General) History Medical History History ICD Code Basal cell cancer near nasolabial area Denies VA,DM,CVA,Lung disease,renal dise ase Negative screening colonoscopy with Dr. Damon in 2014 Surgical History Surgery Date(Month/Year) Appy Basal cell cancer as above 01/11
== END 2025-04-18 11:11 | disposition home or self-care (01) ==
LOC: HO.MAMMO 11:10
PROVIDERS: PCP Internal Medicine; Visit Provider Internal Medicine
DX: N64.89 Other specified disorders of breast (principal)
CPT/HCPCS: 76642; 77061; 77065

== ENCOUNTER → 2025-04-18 11:30 | Outpatient (BNV) | payer MEDICARE, SELFPAY | PROVIDERS: PCP Internal Medicine; Visit Provider Radiology Body Imaging | DX: R92.8 Other abnormal and inconclusive findings on diagnostic imaging of breast (principal) | CPT/HCPCS: 76642; 77065; G0279 ==